=== PATIENT | male | born 1940 | race Caucasian/White ===

== ENCOUNTER 2016-10-30 16:20 | Observation (INO) | payer MEDICARE, OTHER ==
[2016-10-30] MEDS ORDERED: Ketorolac 30 MG/ML SDV IM ONE (16:38)
[2016-10-30] MEDS ORDERED: Acetaminophen/oxyCODONE 325-5 MG Tab PO ONE (16:39)
--- NOTE | 2016-10-30 16:49 | EDM.PDOC ---
ED HPI GENERAL MEDICAL PROBLEM - General Chief Complaint: Back Pain or Injury Stated Complaint: MEDICAL [facility] Time Seen by Provider: 10/30/16 16:30 Source of Information: Reports: Patient, Old Records History Limitations: Reports: No Limitations - History of Present Illness INITIAL COMMENTS - FREE TEXT/NARRATIVE: 76 yo male who drinks alcohol in excess regularly fell 3 times in one day a week ago in his home while drinking. First he fell off his couch landing on the right side of his face. Then he headed up stairs and fell backwards falling down 6 stairs. Then he crawled to the top of the stairs and fell in the bathroom injuring his back. There was no LOC. He lives alone. Has not taken anything for pain. Arrives via EMS from his home. Says he passes out often and sometimes his legs give out on him. Last drank yesterday. No hx of seizures or DT's from alcohol abstinence. Pain is to his low back primarily. Onset Date: 10/23/16 Duration: Day(s): Location: Reports: Face, Back Quality: Reports: Ache, Sharp (with movement) Severity: Severe Improves with: Reports: Rest Worsens with: Reports: Movement Context: Reports: Trauma (fall) Associated Symptoms: Reports: Syncope (passes out with standing intermittently over a prolonged period of time.) Treatments [employer]: Reports: Other (see below) (none) Lower Back Pain Score (Numeric/FACES): 9 - Related Data Allergies Allergy/AdvReac Type Severity Reaction Status Date / Time No Known Allergies Allergy Verified 10/30/16 16:41 Home Meds: Home Meds Atenolol [Tenormin] 100 mg PO DAILY 03/10/13 [History] Simvastatin [Zocor] 20 mg PO BEDTIME 03/10/13 [History] amLODIPine [Norvasc] 2.5 mg PO BID 03/11/13 [History] glipiZIDE [Glucotrol XL] 2.5 mg PO BID 11/05/13 [History] Social & Family History - Tobacco Use Second Hand Smoke Exposure: No - Alcohol Use Days Per Week of Alcohol Use: 7 Number of Drinks Per Day: 5 Total Drinks Per Week: 35 - Recreational Drug Use Recreational Drug Use: No ED ROS GENERAL - Review of Systems Review Of Systems: See Below Constitutional: Reports: No Symptoms HEENT: Reports: Other (R jaw pain since fall) Respiratory: Reports: No Symptoms Cardiovascular: Reports: No Symptoms Endocrine: Reports: No Symptoms GI/Abdominal: Reports: No Symptoms : Reports: No Symptoms Musculoskeletal: Reports: Back Pain Skin: Reports: No Symptoms Neurological: Reports: Difficulty Walking (since fall), Weakness (of legs intermittently when he stands/walks). Denies: Headache, Change in Speech Psychiatric: Reports: No Symptoms ED EXAM,LOWER BACK PAIN/INJURY - Physical Exam Exam: See Below Exam Limited By: No Limitations General Appearance: Alert, WD/WN, No Apparent Distress Eye Exam: Bilateral Eye: EOMI, PERRL Ears: Normal External Exam, Normal Canal, Hearing Grossly Normal Nose: Normal Inspection, Normal Mucosa, No Blood Throat/Mouth: Normal Inspection, Normal Lips, Normal Oropharynx, Normal Voice, No Airway Compromise Head: Atraumatic, Normocephalic Neck: Normal Inspection, Supple, Non-Tender, Full Range of Motion Respiratory/Chest: No Respiratory Distress, Lungs Clear, Normal Breath Sounds, No Accessory Muscle Use Cardiovascular: Regular Rate, Rhythm, No Edema GI/Abdominal: Normal Bowel Sounds, Soft, Non-Tender, No Distention Back Exam: Normal Inspection, Vertebral Tenderness (lumbar ). No: CVA Tenderness (R), CVA Tenderness (L) Extremities: Normal Inspection, Normal Range of Motion, Non-Tender, No Pedal Edema Neurological: Alert, Normal Mood/Affect, CN II-XII Intact, No Motor/Sensory Deficits, Oriented x 3 Psychiatric: Normal Affect, Normal Mood Skin Exam: Warm, Dry, Intact, Normal Color, No Rash Lymphatic: No Adenopathy Course - Vital Signs Text/Narrative:: Toradol 15 mg IM, Percocet 2 po-minimal benefit NS IV @ 100 ml/h, Dilaudid 0.5 mg IV Lumbar spine X-ray-? mild compression Fx's of L4, L5, and L1, degen. changes at multiple levels. Dr. Perrin called @ 1801h Last Recorded V/S: Last Vital Signs Temp 35.8 C 10/30/16 16:28 Pulse 95 10/30/16 16:28 Resp 16 10/30/16 16:28 BP 151/90 H 10/30/16 16:28 Pulse Ox 96 10/30/16 16:28 - Orders/Labs/Meds Orders: Active Orders 24 hr Category Date Time Status Lumbar Spine 2 or 3V [CR] Stat Exams 10/30/16 16:37 Taken Sodium Chloride 0.9% [Normal Saline] 1,000 ml Med 10/30/16 18:15 Active IV ASDIRECTED Medication Orders Sodium Chloride (Normal Saline) 1,000 mls @ 100 mls/hr IV ASDIRECTED RAVEN Labs: Laboratory Tests 10/30/16 10/30/16 10/30/16 Range/Units 17:14 17:14 17:54 WBC 9.0 (4.5-11.0) K/uL RBC 4.50 (4.30-5.90) M/uL Hgb 15.2 H D (12.0-15.0) g/dL Hct 43.6 (40.0-54.0) % MCV 97 (80-98) fL MCH 34 H (27-31) pg MCHC 35 (32-36) % Plt Count 73 L (150-400) K/uL Sodium 132 L (140-148) mmol/L Potassium 4.4 (3.6-5.2) mmol/L Chloride 93 L (100-108) mmol/L Carbon Dioxide 29 (21-32) mmol/L Anion Gap 14.4 H (5.0-14.0) mmol/L BUN 17 (7-18) mg/dL Creatinine 1.8 H (0.8-1.3) mg/dL Est Cr Clr Drug Dosing 39.32 mL/min Estimated GFR (MDRD) 37 L (>60) Glucose 176 H (74-106) mg/dL Calcium 9.0 (8.5-10.1) mg/dL Total Bilirubin 2.2 H D (0.2-1.0) mg/dL AST 31 (15-37) U/L ALT 22 (12-78) U/L Alkaline Phosphatase 74 (46-116) U/L Total Protein 8.0 (6.4-8.2) g/dL Albumin 2.9 L (3.4-5.0) g/dL Globulin 5.1 H (2.3-3.5) g/dL Albumin/Globulin Ratio 0.6 L (1.2-2.2) Urine Color Other Urine Appearance Turbid Urine pH 5.0 (4.5-8.0) Ur Specific [place] 1.010 (1.008-1.030) Urine Protein Negative (NEGATIVE) mg/dL Urine Glucose (UA) Normal (NEGATIVE) mg/dL Urine Ketones 15 H (NEGATIVE) mg/dL Urine Occult Blood Moderate (NEGATIVE) Urine Nitrite Positive H (NEGAITVE) Urine Bilirubin Small (NEGATIVE) Urine Urobilinogen 4 (NORMAL) mg/dL Ur Leukocyte Esterase Large (NEGATIVE) Urine RBC 0-5 (0-5) Urine WBC Packed H (0-5) Ur Epithelial Cells Few Amorphous Sediment Few Urine Bacteria Many Urine Mucus Not seen Meds: Medications Generic Name Dose Route Start Last Admin Trade Name Freq PRN Reason Stop Dose Admin Sodium Chloride 1,000 mls @ 100 mls/hr 10/30/16 18:15 Normal Saline IV ASDIRECTED RAVEN Discontinued Medications Generic Name Dose Route Start Last Admin Trade Name Freq PRN Reason Stop Dose Admin Hydromorphone HCl 0.5 mg 10/30/16 18:02 Dilaudid IVPUSH 10/30/16 18:03 ONETIME ONE Ketorolac Tromethamine 15 mg 10/30/16 16:38 10/30/16 17:22 Toradol IM 10/30/16 16:39 15 mg ONETIME ONE Administration Oxycodone/Acetaminophen 2 tab 10/30/16 16:39 10/30/16 17:20 Percocet 325-5 Mg PO 10/30/16 16:40 2 tab ONETIME ONE Administration Departure - Departure Time of Disposition: 18:08 Disposition: Refer to Observation Condition: Fair Clinical Impression: Acute exacerbation of chronic low back pain - Discharge Information Forms: ED Department Discharge - My Orders Last 24 Hours: My Active Orders 10/30/16 16:37 Lumbar Spine 2 or 3V [CR] Stat 10/30/16 18:15 Sodium Chloride 0.9% [Normal Saline] 1,000 ml IV ASDIRECTED - Assessment/Plan Last 24 Hours: My Active Orders 10/30/16 16:37 Lumbar Spine 2 or 3V [CR] Stat 10/30/16 18:15 Sodium Chloride 0.9% [Normal Saline] 1,000 ml IV ASDIRECTED
[2016-10-30] MEDS ORDERED: HYDROmorphone 0.5 MG/0.5 ML Syringe IVPUSH ONE (18:02)
[2016-10-30] MEDS ORDERED: Sodium Chloride 0.9% 1,000 ML IV SCH (18:15)
[2016-10-30] MEDS: cefTRIAXone 1 GM in Sodium Chloride 0.9% 50 ML IV SCH (20:25)
--- NOTE | 2016-10-30 20:31 | PCM.HP ---
H&P History of Present Illness - General Date of Service: 10/30/16 Admit Problem/Dx: Admission Diagnosis/Problem Admission Diagnosis/Problem Pain Source of Information: Patient, Provider, RN Notes Reviewed History Limitations: Reports: No Limitations - History of Present Illness Initial Comments - Free Text/Narative: This patient is a 76-year-old gentleman who is admitted to observation status through the emergency department because of severe low back pain resulting in inability to care for himself. He fell 8 days ago and since then has had severe pain in his lower back, he denies pain radiating to the legs or any neurologic compromise. Because of persistent pain he has been crawling around the house and has been unable to adequately care for himself. He does drink a large amount of alcohol on a daily basis. X-ray shows possible compression fractures at L1 L4 and L5, age of these is unknown. Evaluation is also shown evidence of urinary tract infection. Lower Back Pain Score (Numeric/FACES): 9 - Related Data Allergies/Adverse Reactions: Allergies Allergy/AdvReac Type Severity Reaction Status Date / Time No Known Allergies Allergy Verified 10/30/16 16:41 Home Medications: Home Meds Atenolol [Tenormin] 100 mg PO DAILY 03/10/13 [History] Simvastatin [Zocor] 20 mg PO BEDTIME 03/10/13 [History] amLODIPine [Norvasc] 2.5 mg PO BID 03/11/13 [History] glipiZIDE [Glucotrol XL] 2.5 mg PO BID 11/05/13 [History] Past Medical History Cardiovascular History: Reports: High Cholesterol, Hypertension Gastrointestinal History: Reports: Gastritis Musculoskeletal History: Reports: Fracture, Other (See Below) Other Musculoskeletal History: Fx r ankle with pins Neurological History: Reports: Other (See Below) Other Neuro History: Fainting episodes Psychiatric History: Reports: Addiction Endocrine/Metabolic History: Reports: Diabetes, Type II Hematologic History: Reports: Blood Transfusion(s) - Infectious Disease History Infectious Disease History: Reports: Chicken Pox, Measles, Mumps, Shingles - Past Surgical History HEENT Surgical History: Reports: Cataract Surgery Social & Family History - Tobacco Use Smoking Status *Q: Never Smoker Second Hand Smoke Exposure: No - Caffeine Use Caffeine Use: Reports: Soda - Alcohol Use Days Per Week of Alcohol Use: 7 Number of Drinks Per Day: 5 Total Drinks Per Week: 35 Date of Last Drink: 10/30/16 Time of Last Drink: 02:00 - Recreational Drug Use Recreational Drug Use: No H&P Review of Systems - Review of Systems: Review Of Systems: See Below General: Reports: Weakness. Denies: Fever, Chills HEENT: Reports: No Symptoms Pulmonary: Reports: No Symptoms Cardiovascular: Reports: No Symptoms Gastrointestinal: Reports: No Symptoms Genitourinary: Reports: No Symptoms Musculoskeletal: Reports: Back Pain Skin: Reports: No Symptoms Psychiatric: Reports: No Symptoms Neurological: Reports: No Symptoms Hematologic/Lymphatic: Reports: No Symptoms Immunologic: Reports: No Symptoms Exam - Exam Exam: See Below - Vital Signs Vital Signs: Last Vital Signs Temp 96.4 F 10/30/16 20:14 Pulse 95 10/30/16 20:14 Resp 16 10/30/16 20:14 BP 151/90 H 10/30/16 20:14 Pulse Ox 96 10/30/16 20:14 Weight: 190 lb - Exam Quality Assessment: DVT Prophylaxis General: Alert, Oriented, Cooperative, Moderate Distress HEENT: Conjunctiva Clear, Hearing Intact, Normal Nasal Septum, Posterior Pharynx Clear, Pupils Equal. No: Mucosa Moist & [place] Neck: Supple, Trachea Midline, +2 Carotid Pulse wo Bruit Lungs: Clear to Auscultation, Normal Respiratory Effort Cardiovascular: Regular Rate, Regular Rhythm, Normal S1, Normal S2. No: Systolic Murmur, Diastolic Murmur Abdomen: Normal Bowel Sounds, Soft Back Exam: Vertebral Tenderness Extremities: 3, Normal Inspection, 10 Skin: Warm, Dry, Intact Neurological: Cranial Nerves Intact, Strength Equal Bilateral, Normal Speech, Normal Tone, Sensation Intact. No: Focal Deficit Neuro Extensive - Mental Status: Alert, Oriented x3, Normal Mood/Affect, Normal Cognition - Patient Data Lab Results Last 24 hrs: Laboratory Results - last 24 hr 10/30/16 10/30/16 10/30/16 Range/Units 17:14 17:14 17:54 WBC 9.0 (4.5-11.0) K/uL RBC 4.50 (4.30-5.90) M/uL Hgb 15.2 H D (12.0-15.0) g/dL Hct 43.6 (40.0-54.0) % MCV 97 (80-98) fL MCH 34 H (27-31) pg MCHC 35 (32-36) % Plt Count 73 L (150-400) K/uL Sodium 132 L (140-148) mmol/L Potassium 4.4 (3.6-5.2) mmol/L Chloride 93 L (100-108) mmol/L Carbon Dioxide 29 (21-32) mmol/L Anion Gap 14.4 H (5.0-14.0) mmol/L BUN 17 (7-18) mg/dL Creatinine 1.8 H (0.8-1.3) mg/dL Est Cr Clr Drug Dosing 39.32 mL/min Estimated GFR (MDRD) 37 L (>60) Glucose 176 H (74-106) mg/dL Calcium 9.0 (8.5-10.1) mg/dL Total Bilirubin 2.2 H D (0.2-1.0) mg/dL AST 31 (15-37) U/L ALT 22 (12-78) U/L Alkaline Phosphatase 74 (46-116) U/L Total Protein 8.0 (6.4-8.2) g/dL Albumin 2.9 L (3.4-5.0) g/dL Globulin 5.1 H (2.3-3.5) g/dL Albumin/Globulin Ratio 0.6 L (1.2-2.2) Urine Color Other Urine Appearance Turbid Urine pH 5.0 (4.5-8.0) Ur Specific [place] 1.010 (1.008-1.030) Urine Protein Negative (NEGATIVE) mg/dL Urine Glucose (UA) Normal (NEGATIVE) mg/dL Urine Ketones 15 H (NEGATIVE) mg/dL Urine Occult Blood Moderate (NEGATIVE) Urine Nitrite Positive H (NEGAITVE) Urine Bilirubin Small (NEGATIVE) Urine Urobilinogen 4 (NORMAL) mg/dL Ur Leukocyte Esterase Large (NEGATIVE) Urine RBC 0-5 (0-5) Urine WBC Packed H (0-5) Ur Epithelial Cells Few Amorphous Sediment Few Urine Bacteria Many Urine Mucus Not seen Result Diagrams: 10/30/16 17:14 10/30/16 17:14 *Q Meaningful Use (ADM) - VTE *Q VTE Criteria *Q: - VTE Risk Assess *Q Each Risk Factor Represents 1 Point: None Total Score 1 Point Risk Factors: 0 Each Risk Factor Represents 2 Points: None Total Score 2 Point Risk Factors: 0 Each Risk Factor Represents 3 Points: Age 75 Years or Greater Total Score 3 Point Risk Factors: 3 Each Risk Factor Represents 5 Points: None Total Score 5 Point Risk Factors: 0 Venous Thromboembolism Risk Factor Score *Q: 3 - Stroke *Q Stroke Criteria *Q: - AMI *Q AMI Criteria *Q: Problem List Initiated/Reviewed/Updated: Yes Orders Last 24hrs: Active Orders 24 hr Category Date Time Status Patient Status Manage Transfer [TRANSFER] Routine ADT 10/30/16 20:12 Ordered Lumbar Spine 2 or 3V [CR] Stat Exams 10/30/16 16:37 Taken CULTURE URINE [RM] Stat Lab 10/30/16 20:15 Received Sodium Chloride 0.9% [Normal Saline] 1,000 ml Med 10/30/16 18:15 Active IV ASDIRECTED cefTRIAXone [Rocephin] 1 gm Med 10/30/16 20:00 Active Sodium Chloride 0.9% [Normal Saline] 50 ml IV Q24H Resuscitation Status Routine Resus Stat 10/30/16 20:13 Ordered Medication Orders Sodium Chloride (Normal Saline) 1,000 mls @ 100 mls/hr IV ASDIRECTED RAVEN Last Admin: 10/30/16 18:28 Dose: 100 mls/hr Ceftriaxone Sodium 1 gm/ (Sodium Chloride) 50 mls @ 100 mls/hr IV Q24H [facility] Assessment/Plan Comment:: ASSESSMENT AND PLAN LOW BACK PAIN-present since he fell 8 days ago, suspect spinal compression fracture. No symptoms or evidence of neurologic compromise -Pain medication as needed -Physical therapy consult in a.m. -CT scan of the lumbar spine in a.m. -[facility] patient reports he has full benefits URINARY TRACT INFECTION-no evidence of sepsis -Urine culture pending -IV fluids for hydration -Rocephin 1 g IV every 24 hours pending culture results HISTORY OF DAILY ALCOHOL CONSUMPTION-by history drinks a large amount on a daily basis -Alcohol withdrawal protocol -Gabapentin 400 mg by mouth every 8 hours 4 days, then 200 mg by mouth every 8 hours 4 days -Oral thiamine and folic acid, banana bag TYPE 2 DIABETES MELLITUS -Hold glipizide -4 times a day glucometers -Low-dose sliding scale [employer] CHRONIC KIDNEY DISEASE STAGE III -Closely monitor urine output and renal function during hospital stay MAINTENANCE ISSUES -DVT prophylaxis; Lovenox 40 mg subcutaneous daily -GI prophylaxis; not indicated -[place] catheter; not indicated -Nutrition; consistent carb diet -Nicotinic dependence; not required CODE STATUS-FULL CODE ADMISSION STATUS-this patient will be admitted to observation status, expect no more than a one night hospital stay for evaluation and management of problems as outlined above. DISPOSITION-anticipate discharge to home after the hospital stay. PRIMARY CARE PROVIDER-[facility] [place]
[2016-10-30] MEDS ORDERED: Magnesium Hydroxide 400 MG/5 ML Susp 30 ML Cup PO PRN (20:52)
[2016-10-30] MEDS ORDERED: Polyethylene Glycol 3350 Powder 17 GM Packet PO PRN (20:52)
[2016-10-30] MEDS ORDERED: MVI, Adult with Vitamin K 10 ML, Thiamine 100 MG, Folic Acid 1 MG, Magnesium Sulfate 2 ... IV ONE ×5 (20:52)
[2016-10-30] MEDS ORDERED: LORazepam 2 MG/ML MDV IV SCH (20:52)
[2016-10-30] MEDS ORDERED: Docusate Sodium 100 MG Cap PO PRN (20:52)
[2016-10-30] MEDS ORDERED: HYDROmorphone 0.5 MG/0.5 ML Syringe IVPUSH PRN (20:52)
[2016-10-30] MEDS ORDERED: Glucose Gel 15 GM in 37.5 GM Tube PO PRN (20:52)
[2016-10-30] MEDS ORDERED: Sodium Chloride 0.9% 10 ML Syringe FLUSH PRN (20:52)
[2016-10-30] MEDS ORDERED: 50% Dextrose in Water 50 ML Syringe IV PRN (20:52)
[2016-10-30] MEDS ORDERED: Ondansetron 4 MG/2 ML SDV IV PRN (20:52)
[2016-10-30] MEDS ORDERED: LORazepam 1 MG Tab PO SCH (20:52)
[2016-10-30] MEDS ORDERED: Acetaminophen 325 MG Tab PO PRN (20:52)
[2016-10-30] MEDS ORDERED: Simvastatin 20 MG Tab PO SCH (21:00)
[2016-10-30] MEDS: Sodium Chloride 0.9% 1,000 ML IV SCH (21:00)
[2016-10-30] MEDS ORDERED: amLODIPine 2.5 MG Tab PO SCH (21:00)
[2016-10-30] MEDS: Folic Acid 1 MG Tab PO SCH (22:03)
[2016-10-30] MEDS: Gabapentin 400 MG Cap PO SCH (22:04)
[2016-10-30] MEDS: Thiamine 100 MG Tab PO SCH (22:04)
[2016-10-30] MEDS: amLODIPine 5 MG Tab**OWN MED PO SCH (22:40)
[2016-10-30] MEDS ORDERED: Thiamine 200 MG/2 ML MDV ONE (23:02)
[2016-10-30] MEDS: Magnesium Sulfate (4.06 MEQ/ML) 1 GM/2 ML SDV ONE ×2 (23:33→23:34)
[2016-10-30] MEDS: Folic Acid 50 MG/10 ML MDV ONE (23:33)
[2016-10-30] MEDS: MVI, Adult with Vitamin K 10 ML SDV IV ONE ×2 (23:33→23:34)
[2016-10-31] MEDS ORDERED: Lidocaine 2% Jelly 10 ML Urojet MUCMEM ONE (00:24)
[2016-10-31] MEDS ORDERED: Enoxaparin 40 MG/0.4 ML Syringe SUBCUT SCH (09:00)
[2016-10-31] MEDS: Gabapentin 400 MG Cap PO SCH ×3 (09:23→20:59)
[2016-10-31] MEDS: Sodium Chloride 0.9% 1,000 ML IV SCH ×2 (09:43→19:36)
[2016-10-31] MEDS: Folic Acid 1 MG Tab PO SCH (09:54)
[2016-10-31] MEDS: amLODIPine 5 MG Tab**OWN MED PO SCH ×2 (09:55→20:59)
[2016-10-31] MEDS: Atenolol 50 MG Tab PO SCH (09:56)
[2016-10-31] MEDS: Thiamine 100 MG Tab PO SCH (09:57)
[2016-10-31] MEDS ORDERED: Insulin Aspart 100 Units/ML 3 ML Pen SUBCUT SCH (10:00)
[2016-10-31] MEDS ORDERED: GLIPIZIDE 2.5 MG PO SCH (12:30)
--- NOTE | 2016-10-31 12:43 | PCM.PN ---
- General Info Date of Service: 10/31/16 Functional Status: Reports: pain controlled, tolerating diet, ambulating, urinating - Review of Systems General: Reports: Weakness. Denies: Fever, Chills Pulmonary: Reports: no symptoms Cardiovascular: Reports: No Symptoms Gastrointestinal: Reports: No symptoms Systems Review Comment:: This patient has been fairly stable since admission, pain control has improved and he is able to walk short distances. Most the pain he experiences this with transition from lying or sitting to standing or the reverse. CT scan of the lumbar spine was obtained today and shows evidence of old compression fractures and other degenerative disease but no acute compression fractures. CT scan of the head without contrast was obtained and shows no acute abnormalities. Vital signs have been stable and he has remained afebrile. Currently receiving IV antibiotic therapy for urinary tract infection, urine culture pending. - Patient Data Vitals - most recent: Last Vital Signs Temp 97.6 F 10/31/16 11:26 Pulse 96 10/31/16 11:26 Resp 18 10/31/16 11:26 BP 146/78 H 10/31/16 11:26 Pulse Ox 100 10/31/16 11:26 Weight - most recent: 178 lb I&O - last 24 hours: Intake & Output 10/30/16 10/31/16 10/31/16 22:59 06:59 14:59 Intake Total 50 902 Output Total 50 Balance 50 902 -50 Lab Results last 24 hrs: Laboratory Results - last 24 hr 10/31/16 10/31/16 Range/Units 05:56 05:56 WBC 6.3 (4.5-11.0) K/uL RBC 3.58 L (4.30-5.90) M/uL Hgb 12.2 D (12.0-15.0) g/dL Hct 35.1 L (40.0-54.0) % MCV 98 (80-98) fL MCH 34 H (27-31) pg MCHC 35 (32-36) % Plt Count 88 L (150-400) K/uL Neut % (Auto) 61 (36-66) % Lymph % (Auto) 24 (24-44) % [place] % (Auto) 12 H (2-6) % Eos % (Auto) 2 (2-4) % Baso % (Auto) 1 (0-1) % Sodium 134 L (140-148) mmol/L Potassium 4.3 (3.6-5.2) mmol/L Chloride 99 L (100-108) mmol/L Carbon Dioxide 31 (21-32) mmol/L Anion Gap 8.3 (5.0-14.0) mmol/L BUN 23 H (7-18) mg/dL Creatinine 1.7 H (0.8-1.3) mg/dL Est Cr Clr Drug Dosing 40.90 mL/min Estimated GFR (MDRD) 39 L (>60) Glucose 175 H (74-106) mg/dL Calcium 8.1 L (8.5-10.1) mg/dL Med Orders - Current: Current Medications Acetaminophen (Tylenol) 650 mg PO Q4H PRN PRN Reason: Pain (Mild 1-3)/fever Hydrocodone Bitart/Acetaminophen ([place] 325-5 Mg) 2 tab PO Q4H PRN PRN Reason: Pain (moderate 4-6) Amlodipine Besylate (Norvasc) 2.5 mg PO BID [facility] Last Admin: 10/31/16 09:55 Dose: 2.5 mg Atenolol (Tenormin) 100 mg PO DAILY [facility] Last Admin: 10/31/16 09:56 Dose: 100 mg Dextrose (Glutose 15) 15 gm PO ONETIME PRN PRN Reason: Hypoglycemia Dextrose/Water (Dextrose 50% In Water) 50 ml IV ONETIME PRN PRN Reason: Hypoglycemia Docusate Sodium (Colace) 100 mg PO BID PRN PRN Reason: Constipation Last Admin: 10/30/16 22:05 Dose: 100 mg Folic Acid (Folic Acid) 1 mg PO DAILY [facility] Last Admin: 10/31/16 09:54 Dose: 1 mg Gabapentin (Neurontin) 400 mg PO TID [facility] Last Admin: 10/31/16 09:23 Dose: 400 mg Hydromorphone HCl (Dilaudid) 0.5 mg IVPUSH Q2H PRN PRN Reason: Pain Ceftriaxone Sodium 1 gm/ (Sodium Chloride) 50 mls @ 100 mls/hr IV Q24H [facility] Last Admin: 10/30/16 20:25 Dose: 100 mls/hr Lorazepam (Ativan) 0 mg IV ASDIRECTED [facility] PRN Reason: Protocol Lorazepam (Ativan) 0 mg PO ASDIRECTED [facility] PRN Reason: Protocol Magnesium Hydroxide (Milk Of Magnesia) 30 ml PO Q12H PRN PRN Reason: Constipation Non-Formulary Medication (Glipizide [Glucotrol Xl]) 2.5 mg PO BID [facility] Ondansetron HCl (Zofran) 4 mg IV Q4H PRN PRN Reason: Nausea/Vomiting Last Admin: 10/30/16 22:27 Dose: 4 mg Simvastatin (Ptom) 0 each PO BEDTIME [facility] Polyethylene Glycol (Miralax) 17 gm PO DAILY PRN PRN Reason: Constipation Last Admin: 10/30/16 22:05 Dose: 17 gm Sodium Chloride (Saline Flush) 10 ml FLUSH ASDIRECTED PRN PRN Reason: Keep Vein Open Thiamine HCl (Vitamin B-1) 100 mg PO DAILY [facility] Last Admin: 10/31/16 09:57 Dose: 100 mg Discontinued Medications Enoxaparin Sodium (Lovenox) 40 mg SUBCUT DAILY [facility] Folic Acid (Folic Acid) Confirm Administered Dose 50 mg .ROUTE .STK-MED ONE Stop: 10/30/16 23:03 Last Admin: 10/30/16 23:33 Dose: 50 mg Hydromorphone HCl (Dilaudid) 0.5 mg IVPUSH ONETIME ONE Stop: 10/30/16 18:03 Last Admin: 10/30/16 18:29 Dose: 0.5 mg Sodium Chloride (Normal Saline) 1,000 mls @ 100 mls/hr IV ASDIRECTED [facility] Last Admin: 10/30/16 18:28 Dose: 100 mls/hr Multivitamins/Minerals 10 ml/Thiamine HCl 100 mg/ Folic Acid 1 mg/ Magnesium Sulfate 2 gm/ Sodium Chloride 1,015.2 mls @ 100 mls/hr IV ONETIME ONE Stop: 10/31/16 07:01 Last Admin: 10/30/16 23:32 Dose: 100 mls/hr Sodium Chloride (Normal Saline) 1,000 mls @ 125 mls/hr IV ASDIRECTED [facility] Last Admin: 10/31/16 09:43 Dose: 125 mls/hr Insulin Aspart (Novolog) 0 unit SUBCUT ASDIRECTED [facility] PRN Reason: Protocol Ketorolac Tromethamine (Toradol) 15 mg IM ONETIME ONE Stop: 10/30/16 16:39 Last Admin: 10/30/16 17:22 Dose: 15 mg Magnesium Sulfate (Magnesium Sulfate 50%) Confirm Administered Dose 1 gm .ROUTE .STK-MED ONE Stop: 10/30/16 23:03 Last Admin: 10/30/16 23:34 Dose: 1 gm Multivitamins/Minerals (Infuvite Adult) Confirm Administered Dose 10 ml IV .STK- MED ONE Stop: 10/30/16 23:04 Last Admin: 10/30/16 23:34 Dose: 10 ml Oxycodone/Acetaminophen (Percocet 325-5 Mg) 2 tab PO ONETIME ONE Stop: 10/30/16 16:40 Last Admin: 10/30/16 17:20 Dose: 2 tab Patient's Own Medication 1 Each Simvastatin 40 Mg 0.5 each PO BEDTIME [facility] Thiamine HCl (Vitamin B-1) Confirm Administered Dose 200 mg .ROUTE .STK-MED ONE Stop: 10/30/16 23:03 Last Admin: 10/30/16 23:33 Dose: 200 mg - Exam Quality Assessment: DVT prophylaxis General: alert, oriented, mild distress Lungs: Clear to auscultation, Normal respiratory effort Cardiovascular: Regular Rate, Regular Rhythm, No Murmurs Abdomen: bowel sounds present, soft, no tenderness, no distension Extremities: no edema Skin: warm, dry, intact - Problem List Review Problem List Initiated/Reviewed/Updated: Yes - My Orders Last 24 Hours: My Active Orders 10/30/16 20:13 Resuscitation Status Routine 10/30/16 20:52 Patient Status [ADT] Routine CIWAA Assessment [RC] Q4H Diabetes Education [RC] Click to Edit Intake and Output [RC] QSHIFT Notify Provider Vital Signs [RC] ASDIRECTED Notify Provider [RC] PRN Oxygen Therapy [RC] PRN Peripheral IV Care [RC] Q12H Up With Assistance [RC] ASDIRECTED VTE/DVT Education [RC] Per Unit Routine Vital Signs [RC] Q4H PT Evaluation and Treatment [CONS] Routine Acetaminophen [Tylenol] 650 mg PO Q4H PRN Acetaminophen/HYDROcodone [[place] 325-5 MG] 2 tab PO Q4H PRN Dextrose 50% in Water 50 ml IV ONETIME PRN Dextrose [Glutose 15] 15 gm PO ONETIME PRN Docusate Sodium [Colace] 100 mg PO BID PRN Folic Acid 1 mg PO DAILY HYDROmorphone [Dilaudid] 0.5 mg IVPUSH Q2H PRN LORazepam [Ativan] See Protocol IV ASDIRECTED LORazepam [Ativan] See Protocol PO ASDIRECTED Magnesium Hydroxide [Milk of Magnesia] 30 ml PO Q12H PRN Ondansetron [Zofran] 4 mg IV Q4H PRN Polyethylene Glycol 3350 [MiraLAX] 17 gm PO DAILY PRN Sodium Chloride 0.9% [Saline Flush] 10 ml FLUSH ASDIRECTED PRN Thiamine [Vitamin B-1] 100 mg PO DAILY Peripheral IV Insertion Adult [OM.PC] Routine 10/30/16 21:00 Gabapentin [Neurontin] 400 mg PO TID 10/30/16 22:30 amLODIPine [Norvasc] 2.5 mg PO BID 10/30/16 Dinner Consistent Carbohydrate Diet [DIET] 10/31/16 08:00 Lumbar Spine wo Cont [CT] Stat 10/31/16 08:24 Sequential Compression Device [OM.PC] Routine 10/31/16 09:45 Head wo Cont [CT] Stat 10/31/16 12:30 glipiZIDE [Glucotrol XL] 2.5 mg PO BID 10/31/16 12:38 Convert IV to Saline Lock [OM.PC] Routine 10/31/16 21:00 Patient's Own Medication [Ptom] 0 each PO BEDTIME 11/01/16 05:00 BASIC METABOLIC PANEL,BMP [CHEM] Timed CBC WITH AUTO DIFF [HEME] Timed - Plan Plan:: ASSESSMENT AND PLAN LOW BACK PAIN-present since he fell 8 days ago, CT scan of the lumbar spine shows no evidence of acute compression fracture. Old compression fractures were noted with associated degenerative changes. -Pain medication as needed -Physical therapy consult in a.m. URINARY TRACT INFECTION-no evidence of sepsis -Urine culture pending -Saline lock IV -Rocephin 1 g IV every 24 hours pending culture results HISTORY OF DAILY ALCOHOL CONSUMPTION-by history drinks a large amount on a daily basis -Alcohol withdrawal protocol -Gabapentin 400 mg by mouth every 8 hours 4 days, then 200 mg by mouth every 8 hours 4 days -Oral thiamine and folic acid, banana bag TYPE 2 DIABETES MELLITUS -Resume glipizide CHRONIC KIDNEY DISEASE STAGE III -Closely monitor urine output and renal function during hospital stay MAINTENANCE ISSUES -DVT prophylaxis; Lovenox 40 mg subcutaneous daily -GI prophylaxis; not indicated -H[place]inson catheter; not indicated -Nutrition; consistent carb diet -Nicotinic dependence; not required CODE STATUS-FULL CODE ADMISSION STATUS-this patient will be admitted to observation status, expect no more than a one night hospital stay for evaluation and management of problems as outlined above. DISPOSITION-anticipate discharge to home after the hospital stay. PRIMARY CARE PROVIDER-[facility] [place]
[2016-10-31] MEDS: glipiZIDE 5 MG Tab PO SCH ×2 (14:15→20:58)
[2016-10-31] MEDS ORDERED: glipiZIDE 5 MG Tab PO SCH (16:30)
[2016-10-31] MEDS: Acetaminophen/HYDROcodone 325-5 MG Tab PO PRN (16:59)
[2016-10-31] MEDS: cefTRIAXone 1 GM in Sodium Chloride 0.9% 50 ML IV SCH (19:26)
[2016-10-31] MEDS ORDERED: SIMVASTATIN PO SCH (21:00)
[2016-10-31] MEDS ORDERED: SIMVASTATIN 40 MG PO SCH (21:00)
[2016-11-01] MEDS: Sodium Chloride 0.9% 1,000 ML IV SCH (00:11)
[2016-11-01] MEDS ORDERED: Sodium Chloride 0.9% 1,000 ML IV SCH (03:15)
[2016-11-01] MEDS ORDERED: glipiZIDE 5 MG Tab PO SCH (07:30)
[2016-11-01] MEDS: Acetaminophen/HYDROcodone 325-5 MG Tab PO PRN (07:38)
[2016-11-01] MEDS: Atenolol 50 MG Tab PO SCH (08:50)
[2016-11-01 09:26] VITALS: BP 129/65
[2016-11-01] MEDS: Gabapentin 400 MG Cap PO SCH (09:26)
[2016-11-01] MEDS: Thiamine 100 MG Tab PO SCH (09:27)
[2016-11-01] MEDS: Folic Acid 1 MG Tab PO SCH (09:27)
[2016-11-01] MEDS: amLODIPine 5 MG Tab**OWN MED PO SCH (09:27)
--- NOTE | 2016-11-01 11:37 | PCM.DCSUM1 ---
Discharge Summary - Hospital Course Brief History: Mr. Clarke is a 76-year-old gentleman who is admitted through the emergency department to observation status for further evaluation and management of severe lower back pain. - Discharge Data Discharge Date: 11/01/16 Discharge Disposition: Home, W Home Health Agency 06 Condition: Fair - Discharge Diagnosis/Problem(s) (1) CKD (chronic kidney disease) stage 3, GFR 30-59 ml/min SNOMED Code(s): 494735210 ICD Code: N18.3 - CHRONIC KIDNEY DISEASE, STAGE 3 (MODERATE) Status: Acute Current Visit: Yes (2) Alcohol abuse SNOMED Code(s): 61399647 ICD Code: F10.10 - ALCOHOL ABUSE, UNCOMPLICATED Status: Acute Current Visit: No (3) Diabetes mellitus type 2 SNOMED Code(s): 62062413 ICD Code: E11.9 - TYPE 2 DIABETES MELLITUS WITHOUT COMPLICATIONS Status: Chronic Current Visit: No (4) Acute exacerbation of chronic low back pain SNOMED Code(s): 827302636 ICD Code: M54.5 - LOW BACK PAIN; G89.29 - OTHER CHRONIC PAIN Status: Acute Current Visit: Yes (5) UTI (urinary tract infection) SNOMED Code(s): 64002293 ICD Code: N39.0 - URINARY TRACT INFECTION, SITE NOT SPECIFIED Status: Acute Current Visit: Yes - Patient Summary/Data Consults: Consultations 10/30/16 20:52 PT Evaluation and Treatment [CONS] Routine Please Evaluate and Treat. PT Reason for Consult: Back pain following a fall This query below is only for informational purposes and is not editable. Hospital Course: Mr. Clarke is a 76-year-old gentleman who is admitted through the emergency department to observation status for further evaluation and management of severe low back pain. He has a history of chronic alcohol use and abuse and drinks alcohol on a daily basis. Approximately 8 days prior to admission he fallen down about a half flight of stairs and since then has experienced significant lower back pain. X-ray obtained in the emergency department suggested compression fractures, age indeterminate. On admission he was given IV fluids for hydration and pain medication as needed. After admission urinalysis was obtained that did show evidence of urinary tract infection. Urine culture was obtained but is pending at the time of discharge. He was started on oral Rocephin 1 g every 24 hours. Morning after admission CT scan of the lumbar spine was obtained which showed evidence of old compression fractures at L4 and L5 as well as degenerative changes in the back, but no new evidence of acute compression fracture. He was seen and evaluated by physical therapy. After hydration and with pain medication he was feeling better and will be discharged home with assistance of home care. Activity will be as tolerated and he will resume his usual diet. He was counseled concerning the importance of decreasing or stopping his alcohol use. Activity will be as tolerated and he will resume his usual diet. Septra DS 1 by mouth twice a day for 5 days will be prescribed at time of discharge for ongoing management of his urinary tract infection. Follow-up appointment will be scheduled with his primary care provider within one week. - Patient Instructions Diet: Diabetic Diet Activity: As Tolerated Other/Special Instructions: Please schedule follow-up appointment with primary care provider within one week. - Discharge Plan Prescriptions/Med Rec: Acetaminophen/HYDROcodone [[place] 325-5 MG] 1 tab PO Q4H PRN #20 tablet PRN Reason: Pain Sulfamethoxazole/Trimethoprim [Septra DS] 1 each PO BID #10 tab Home Medications: Home Meds Atenolol [Tenormin] 100 mg PO DAILY 03/10/13 [History] Simvastatin [Zocor] 20 mg PO BEDTIME 03/10/13 [History] amLODIPine [Norvasc] 2.5 mg PO BID 03/11/13 [History] glipiZIDE [Glucotrol XL] 2.5 mg PO BID 11/05/13 [History] Acetaminophen/HYDROcodone [[place] 325-5 MG] 1 tab PO Q4H PRN #20 tablet 11/01/16 [Rx] Sulfamethoxazole/Trimethoprim [Septra DS] 1 each PO BID #10 tab 11/01/16 [Rx] Forms: ED Department Discharge Referrals: PCP,None [Primary Care Provider] - - Patient Data Vitals - Most Recent: Last Vital Signs Temp 97.8 F 11/01/16 07:30 Pulse 66 11/01/16 08:50 Resp 16 11/01/16 07:30 BP 129/65 11/01/16 09:27 Pulse Ox 96 11/01/16 07:30 Weight - Most Recent: 178 lb I&O - Last 24 hours: Intake & Output 10/31/16 11/01/16 11/01/16 22:59 06:59 14:59 Intake Total 1438 8230 Output Total 825 250 Balance 1691 1082 -250 Lab Results - Last 24 hrs: Laboratory Results - last 24 hr 11/01/16 11/01/16 Range/Units 05:15 05:15 WBC 7.0 (4.5-11.0) K/uL RBC 3.52 L (4.30-5.90) M/uL Hgb 12.0 (12.0-15.0) g/dL Hct 35.2 L (40.0-54.0) % MCV 100 H (80-98) fL MCH 34 H (27-31) pg MCHC 34 (32-36) % Plt Count 92 L (150-400) K/uL Neut % (Auto) 58 (36-66) % Lymph % (Auto) 28 (24-44) % [place] % (Auto) 11 H (2-6) % Eos % (Auto) 2 (2-4) % Baso % (Auto) 1 (0-1) % Sodium 137 L (140-148) mmol/L Potassium 4.2 (3.6-5.2) mmol/L Chloride 103 (100-108) mmol/L Carbon Dioxide 27 (21-32) mmol/L Anion Gap 11.2 (5.0-14.0) mmol/L BUN 21 H (7-18) mg/dL Creatinine 1.7 H (0.8-1.3) mg/dL Est Cr Clr Drug Dosing 40.90 mL/min Estimated GFR (MDRD) 39 L (>60) Glucose 93 (74-106) mg/dL Calcium 8.0 L (8.5-10.1) mg/dL JOEY Results - Last 24 hrs: Microbiology 10/30/16 20:15 Urine Culture - Preliminary Urine, Clean Catch Med Orders - Current: Current Medications Acetaminophen (Tylenol) 650 mg PO Q4H PRN PRN Reason: Pain (Mild 1-3)/fever Hydrocodone Bitart/Acetaminophen ([place] 325-5 Mg) 2 tab PO Q4H PRN PRN Reason: Pain (moderate 4-6) Last Admin: 11/01/16 07:38 Dose: 2 tab Amlodipine Besylate (Norvasc) 2.5 mg PO BID [facility] Last Admin: 11/01/16 09:27 Dose: 2.5 mg Atenolol (Tenormin) 100 mg PO DAILY [facility] Last Admin: 11/01/16 08:50 Dose: 100 mg Dextrose (Glutose 15) 15 gm PO ONETIME PRN PRN Reason: Hypoglycemia Dextrose/Water (Dextrose 50% In Water) 50 ml IV ONETIME PRN PRN Reason: Hypoglycemia Docusate Sodium (Colace) 100 mg PO BID PRN PRN Reason: Constipation Last Admin: 10/30/16 22:05 Dose: 100 mg Folic Acid (Folic Acid) 1 mg PO DAILY [facility] Last Admin: 11/01/16 09:27 Dose: 1 mg Gabapentin (Neurontin) 400 mg PO TID [facility] Last Admin: 11/01/16 09:26 Dose: 400 mg Glipizide (Glucotrol) 2.5 mg PO BIDAC [facility] Last Admin: 11/01/16 07:42 Dose: 2.5 mg Hydromorphone HCl (Dilaudid) 0.5 mg IVPUSH Q2H PRN PRN Reason: Pain Ceftriaxone Sodium 1 gm/ (Sodium Chloride) 50 mls @ 100 mls/hr IV Q24H [facility] Last Admin: 10/31/16 19:26 Dose: 100 mls/hr Sodium Chloride (Normal Saline) 1,000 mls @ 125 mls/hr IV ASDIRECTED [facility] Last Admin: 11/01/16 08:34 Dose: 125 mls/hr Lorazepam (Ativan) 0 mg IV ASDIRECTED [facility] PRN Reason: Protocol Lorazepam (Ativan) 0 mg PO ASDIRECTED [facility] PRN Reason: Protocol Magnesium Hydroxide (Milk Of Magnesia) 30 ml PO Q12H PRN PRN Reason: Constipation Ondansetron HCl (Zofran) 4 mg IV Q4H PRN PRN Reason: Nausea/Vomiting Last Admin: 10/30/16 22:27 Dose: 4 mg Simvastatin (Ptom) 0 each PO BEDTIME [facility] Last Admin: 10/31/16 20:59 Dose: 1 each Polyethylene Glycol (Miralax) 17 gm PO DAILY PRN PRN Reason: Constipation Last Admin: 10/30/16 22:05 Dose: 17 gm Sodium Chloride (Saline Flush) 10 ml FLUSH ASDIRECTED PRN PRN Reason: Keep Vein Open Thiamine HCl (Vitamin B-1) 100 mg PO DAILY [facility] Last Admin: 11/01/16 09:27 Dose: 100 mg Discontinued Medications Enoxaparin Sodium (Lovenox) 40 mg SUBCUT DAILY [facility] Folic Acid (Folic Acid) Confirm Administered Dose 50 mg .ROUTE .STK-MED ONE Stop: 10/30/16 23:03 Last Admin: 10/30/16 23:33 Dose: 50 mg Glipizide (Glucotrol) 2.5 mg PO BID [facility] Stop: 10/31/16 22:00 Last Admin: 10/31/16 20:58 Dose: 2.5 mg Hydromorphone HCl (Dilaudid) 0.5 mg IVPUSH ONETIME ONE Stop: 10/30/16 18:03 Last Admin: 10/30/16 18:29 Dose: 0.5 mg Sodium Chloride (Normal Saline) 1,000 mls @ 100 mls/hr IV ASDIRECTED [facility] Last Admin: 10/30/16 18:28 Dose: 100 mls/hr Multivitamins/Minerals 10 ml/Thiamine HCl 100 mg/ Folic Acid 1 mg/ Magnesium Sulfate 2 gm/ Sodium Chloride 1,015.2 mls @ 100 mls/hr IV ONETIME ONE Stop: 10/31/16 07:01 Last Admin: 10/30/16 23:32 Dose: 100 mls/hr Sodium Chloride (Normal Saline) 1,000 mls @ 125 mls/hr IV ASDIRECTED [facility] Last Admin: 10/31/16 09:43 Dose: 125 mls/hr Sodium Chloride (Normal Saline) 1,000 mls @ 250 mls/hr IV ASDIRECTED [facility] Stop: 11/01/16 03:16 Last Admin: 11/01/16 00:11 Dose: 125 mls/hr Insulin Aspart (Novolog) 0 unit SUBCUT ASDIRECTED [facility] PRN Reason: Protocol Ketorolac Tromethamine (Toradol) 15 mg IM ONETIME ONE Stop: 10/30/16 16:39 Last Admin: 10/30/16 17:22 Dose: 15 mg Magnesium Sulfate (Magnesium Sulfate 50%) Confirm Administered Dose 1 gm .ROUTE .STK-MED ONE Stop: 10/30/16 23:03 Last Admin: 10/30/16 23:34 Dose: 1 gm Multivitamins/Minerals (Infuvite Adult) Confirm Administered Dose 10 ml IV .STK- MED ONE Stop: 10/30/16 23:04 Last Admin: 10/30/16 23:34 Dose: 10 ml Oxycodone/Acetaminophen (Percocet 325-5 Mg) 2 tab PO ONETIME ONE Stop: 10/30/16 16:40 Last Admin: 10/30/16 17:20 Dose: 2 tab Patient's Own Medication 1 Each Simvastatin 40 Mg 0.5 each PO BEDTIME [facility] Thiamine HCl (Vitamin B-1) Confirm Administered Dose 200 mg .ROUTE .STK-MED ONE Stop: 10/30/16 23:03 Last Admin: 10/30/16 23:33 Dose: 200 mg *Q Meaningful Use (DIS) - VTE *Q VTE Criteria *Q: - Stroke *Q Stroke Criteria *Q: - AMI *Q AMI Criteria *Q:
--- NOTE | 2016-11-02 09:11 | CR ---
Lumbar Spine 2 or 3V HISTORY: Fall, pain COMPARISON: MRI scan 05/16/2007 FINDINGS: Moderate degenerative change. Grade 1 spondylolisthesis L5 on S1. 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 Loss of vertebral body height of L4 and L5 approximately 20-30% age ind eterminant.
[2016-11-02] MEDS: MVI, Adult with Vitamin K 10 ML SDV IV ONE (10:39)
[2016-11-02] MEDS: Magnesium Sulfate (4.06 MEQ/ML) 1 GM/2 ML SDV ONE (10:41)
[2016-11-02] MEDS: Folic Acid 50 MG/10 ML MDV ONE (10:43)
== END 2016-11-01 12:45 | disposition home health service (06) ==
LOC: JP.ED 16:20 → JP.MS 20:12
PROVIDERS: ADMIT Hospitalist; ATTEND Hospitalist
DX: G89.29 Other chronic pain (principal); M54.5 Low back pain; E11.22 Type 2 diabetes mellitus with diabetic chronic kidney disease; I12.9 Hypertensive chronic kidney disease with stage 1 through stage 4 chronic kidney disease, or unspecified chronic kidney disease; N18.3 Chronic kidney disease, stage 3 (moderate); E78.00 Pure hypercholesterolemia, unspecified; F10.10 Alcohol abuse, uncomplicated; N39.0 Urinary tract infection, site not specified; Z87.81 Personal history of (healed) traumatic fracture; Z98.890 Other specified postprocedural states
CPT/HCPCS: 36415; 70450; 72100; 72131; 80048; 80053; 81001; 82962; 85025; 85027; 87086; 87088; 87186; 96361; 96365; 96366; 96367; 96372; 96375; 97161; 99217; 99219; 99225; 99285; A9270; G0378; J0696; J1170; J1885; J2405; J3411; J3475; J7040; J7050; 96374; 99284; J3490

== ENCOUNTER 2018-08-07 19:54 | Inpatient (IN) | payer MEDICARE, OTHER ==
--- NOTE | 2018-08-07 20:09 | EDM.PDOC ---
ED HPI GENERAL MEDICAL PROBLEM - General Chief Complaint: General Stated Complaint: WEAKNESS BEEN DRINKING Time Seen by Provider: 08/07/18 19:56 Source of Information: Reports: Patient, EMS, Old Records History Limitations: Reports: No Limitations - History of Present Illness INITIAL COMMENTS - FREE TEXT/NARRATIVE: Joe is an 78 yo male who lives alone. A son from [facility] called his dad and found he was slurring his speech and weak. The son asked a neighbor lady to check on him and she called 911. EMS has responded to this residence before and both times found him living in [facility] with most of his oral intake consisting of Snicker's bars and alcohol. Today he was drinking a whiskey Coke upon their arrival. He has a known hx of alcohol abuse. Is diabetic and it is unclear if he has been taking any of his meds. Reportedly one of his 2 sons is flying home tomorrow to see the dad. EMS states that Joe had been driving up to a few days ago, now too weak to do so. Has a doctor, but cannot tell me who his doctor is. He can't tell me when he saw them last. He has no appetite. He reports no pain. His sons come to visit once a year during deer hunting to [place] [address]. Joe does not smoke. He is not currently getting any assistance with food, is supposed to make his own food, but he tends not to cook. Both sons lives out of the area. Joe has lived alone for about 20 yrs. He does not know his meds. Told nursing he hasn't taken any of his meds for at least 2-3 weeks. Onset: Gradual Duration: Chronic, Getting Worse Location: Reports: Generalized Quality: Reports: Other (no pain) Severity: Moderate (weakness) Improves with: Reports: None Worsens with: Reports: Other (time) Context: Reports: Other ( See HPI) Associated Symptoms: Reports: Loss of Appetite, Malaise, Weakness Treatments [employer]: Reports: Other (see below) (none) - Related Data Allergies Allergy/AdvReac Type Severity Reaction Status Date / Time No Known Allergies Allergy Verified 10/30/16 16:41 Home Meds: Home Meds Atenolol [Tenormin] 100 mg PO DAILY 03/10/13 [History] Simvastatin [Zocor] 20 mg PO BEDTIME 03/10/13 [History] amLODIPine [Norvasc] 2.5 mg PO BID 03/11/13 [History] glipiZIDE [Glucotrol XL] 2.5 mg PO BID 11/05/13 [History] Acetaminophen/HYDROcodone [[place] 325-5 MG] 1 tab PO Q4H PRN #20 tablet 11/01/16 [Rx] Sulfamethoxazole/Trimethoprim [Septra DS] 1 each PO BID #10 tab 11/01/16 [Rx] Magnesium Oxide [Magnesium] 400 mg PO BID 03/03/18 [History] metFORMIN [Glucophage XR] 500 mg PO BID 03/03/18 [History] Past Medical History HEENT History: Reports: None Cardiovascular History: Reports: High Cholesterol, Hypertension Gastrointestinal History: Reports: Colon Polyp, Gastritis Musculoskeletal History: Reports: Back Pain, Chronic, Fracture, Other (See Below ) Other Musculoskeletal History: Fx r ankle with pins Neurological History: Reports: Other (See Below) Other Neuro History: Fainting episodes Psychiatric History: Reports: Addiction Endocrine/Metabolic History: Reports: Diabetes, Type II Hematologic History: Reports: Blood Transfusion(s) - Infectious Disease History Infectious Disease History: Reports: Chicken Pox, Measles, Mumps, Shingles - Past Surgical History HEENT Surgical History: Reports: Cataract Surgery, Oral Surgery Cardiovascular Surgical History: Reports: None GI Surgical History: Reports: Colonoscopy, EGD Endocrine Surgical History: Reports: None Neurological Surgical History: Reports: None Musculoskeletal Surgical History: Reports: Carpal Tunnel Dermatological Surgical History: Reports: None Social & Family History - Family History Family Medical History: Noncontributory HEENT: Reports: None - Caffeine Use Caffeine Use: Reports: Soda ED ROS GENERAL - Review of Systems Review Of Systems: See Below Constitutional: Reports: Malaise, Weakness, Decreased Appetite HEENT: Reports: No Symptoms Respiratory: Reports: No Symptoms Cardiovascular: Reports: No Symptoms Endocrine: Reports: Fatigue GI/Abdominal: Reports: Decreased Appetite : Reports: No Symptoms Musculoskeletal: Reports: No Symptoms Skin: Reports: No Symptoms Neurological: Reports: No Symptoms Psychiatric: Reports: No Symptoms ED EXAM, GENERAL - Physical Exam Exam: See Below Exam Limited By: No Limitations General Appearance: Alert, No Apparent Distress, Thin Eye Exam: Bilateral Eye: Normal Inspection Ears: Normal External Exam, Normal Canal, Hearing Grossly Normal, Normal TMs Ear Exam: Bilateral Ear: Auricle Normal, Canal Normal, TM normal Nose: Normal Inspection, Normal Mucosa, No Blood Throat/Mouth: Normal Inspection, Normal Lips, Normal Oropharynx, Normal Voice, No Airway Compromise, Other (poor dentition ). No: Normal Teeth Head: Atraumatic, Normocephalic Neck: Normal Inspection Respiratory/Chest: No Respiratory Distress, Lungs Clear, Normal Breath Sounds, No Accessory Muscle Use Cardiovascular: Regular Rate, Rhythm, No Edema GI/Abdominal: Normal Bowel Sounds, Soft, Non-Tender, No Distention Back Exam: Normal Inspection. No: CVA Tenderness (R), CVA Tenderness (L) Extremities: Normal Inspection, Normal Range of Motion, Non-Tender, No Pedal Edema Neurological: Alert, Oriented, CN II-XII Intact, Normal Cognition, No Motor/ Sensory Deficits Psychiatric: Depressed Mood, Flat Affect. No: Tearful Skin Exam: Warm, Dry, Intact, Normal Color, No Rash Course - Vital Signs Text/Narrative:: Dr. Hurt called @ Last Recorded V/S: Last Vital Signs Temp 35.9 C 08/07/18 20:21 Pulse 100 08/07/18 20:21 Resp 16 08/07/18 20:21 BP 128/77 08/07/18 20:21 Pulse Ox 96 08/07/18 20:21 - Orders/Labs/Meds Orders: Active Orders 24 hr Category Date Time Status TSH ULTRASENSITIVE [CHEM] Stat Lab 08/07/18 20:28 Ordered UA W/MICROSCOPIC [URIN] Stat Lab 08/07/18 19:55 Ordered MVI, Adult with Vitamin K [Infuvite Adult] 10 ml Med 08/07/18 20:30 Active Thiamine [Vitamin B-1] 100 mg Folic Acid 1 mg Magnesium Sulfate [Magnesium Sulfate 50%] 3 gm Sodium Chloride 0.9% [Normal Saline] 1,000 ml IV ASDIRECTED Medication Orders Multivitamins/Minerals 10 ml/Thiamine HCl 100 mg/ Folic Acid 1 mg/ Magnesium Sulfate 3 gm/ Sodium Chloride 1,017.2 mls @ 500 mls/hr IV ASDIRECTED RAVEN Last Admin: 08/07/18 20:41 Dose: 500 mls/hr Labs: Laboratory Tests 08/07/18 08/07/18 08/07/18 Range/Units 20:03 20:03 20:03 WBC 7.9 (4.5-11.0) K/uL RBC 3.90 L (4.30-5.90) M/uL Hgb 11.9 L (12.0-15.0) g/dL Hct 36.1 L (40.0-54.0) % MCV 93 (80-98) fL MCH 31 (27-31) pg MCHC 33 (32-36) % Plt Count 197 (150-400) K/uL Sodium 141 (140-148) mmol/L Potassium 4.5 (3.6-5.2) mmol/L Chloride 100 (100-108) mmol/L Carbon Dioxide 24 (21-32) mmol/L Anion Gap 17.1 H (5.0-14.0) mmol/L BUN 23 H (7-18) mg/dL Creatinine 1.6 H (0.8-1.3) mg/dL Est Cr Clr Drug Dosing TNP Estimated GFR (MDRD) 42 L (>60) Glucose 150 H (74-106) mg/dL Calcium 9.4 D (8.5-10.1) mg/dL Magnesium (1.8-2.4) mg/dL Total Bilirubin 1.6 H (0.2-1.0) mg/dL AST 17 (15-37) U/L ALT 13 (12-78) U/L Alkaline Phosphatase 73 (46-116) U/L Total Protein 7.7 (6.4-8.2) g/dL Albumin 2.3 L (3.4-5.0) g/dL Globulin 5.4 H (2.3-3.5) g/dL Albumin/Globulin Ratio 0.4 L (1.2-2.2) Ethyl Alcohol 13 mg/dL 08/07/18 Range/Units 20:03 WBC (4.5-11.0) K/uL RBC (4.30-5.90) M/uL Hgb (12.0-15.0) g/dL Hct (40.0-54.0) % MCV (80-98) fL MCH (27-31) pg MCHC (32-36) % Plt Count (150-400) K/uL Sodium (140-148) mmol/L Potassium (3.6-5.2) mmol/L Chloride (100-108) mmol/L Carbon Dioxide (21-32) mmol/L Anion Gap (5.0-14.0) mmol/L BUN (7-18) mg/dL Creatinine (0.8-1.3) mg/dL Est Cr Clr Drug Dosing Estimated GFR (MDRD) (>60) Glucose (74-106) mg/dL Calcium (8.5-10.1) mg/dL Magnesium 1.6 L (1.8-2.4) mg/dL Total Bilirubin (0.2-1.0) mg/dL AST (15-37) U/L ALT (12-78) U/L Alkaline Phosphatase (46-116) U/L Total Protein (6.4-8.2) g/dL Albumin (3.4-5.0) g/dL Globulin (2.3-3.5) g/dL Albumin/Globulin Ratio (1.2-2.2) Ethyl Alcohol mg/dL Meds: Medications Generic Name Dose Route Start Last Admin Trade Name Freq PRN Reason Stop Dose Admin Multivitamins/Minerals 10 ml/ 1,017.2 mls @ 500 mls/hr 08/07/18 20:30 20:41 Thiamine HCl 100 mg/ Folic IV 500 mls/hr Acid 1 mg/ Magnesium Sulfate 3 ASDIRECTED RAVEN Administration gm/ Sodium Chloride Discontinued Medications Generic Name Dose Route Start Last Admin Trade Name Freq PRN Reason Stop Dose Admin Lactated Ringer's 1,000 mls @ 1,000 mls/hr 08/07/18 20:27 08/07/18 20:43 Ringers, Lactated IV 08/07/18 21:26 Not Given BOLUS ONE Magnesium Sulfate 2 gm/ Premix 50 mls @ 12.5 mls/hr 08/07/18 20:27 08/07/18 20:43 IV 08/08/18 00:26 Not Given ONETIME ONE Magnesium Oxide 800 mg 08/07/18 20:27 08/07/18 20:43 Magnesium Oxide PO 08/07/18 20:28 800 mg ONETIME ONE Administration Departure - Departure Time of Disposition: 21:10 Disposition: Refer to Observation Condition: Fair Clinical Impression: Weakness, Cachexia, Alcohol abuse, Hypomagnesemia, Social isolation Protein calorie malnutrition Qualifiers: Protein-calorie malnutrition severity: moderate Qualified Code(s): E44.0 - Moderate protein-calorie malnutrition - Discharge Information *PRESCRIPTION DRUG MONITORING PROGRAM REVIEWED*: No *COPY OF PRESCRIPTION DRUG MONITORING REPORT IN PATIENT CASA: No Referrals: PCP,None [Primary Care Provider] - Forms: ED Department Discharge - My Orders Last 24 Hours: My Active Orders 08/07/18 19:55 UA W/MICROSCOPIC [URIN] Stat 08/07/18 20:28 TSH ULTRASENSITIVE [CHEM] Stat 08/07/18 20:30 MVI, Adult with Vitamin K [Infuvite Adult] 10 ml Thiamine [Vitamin B-1] 100 mg Folic Acid 1 mg Magnesium Sulfate [Magnesium Sulfate 50%] 3 gm Sodium Chloride 0.9% [Normal Saline] 1,000 ml IV ASDIRECTED - Assessment/Plan Last 24 Hours: My Active Orders 08/07/18 19:55 UA W/MICROSCOPIC [URIN] Stat 08/07/18 20:28 TSH ULTRASENSITIVE [CHEM] Stat 08/07/18 20:30 MVI, Adult with Vitamin K [Infuvite Adult] 10 ml Thiamine [Vitamin B-1] 100 mg Folic Acid 1 mg Magnesium Sulfate [Magnesium Sulfate 50%] 3 gm Sodium Chloride 0.9% [Normal Saline] 1,000 ml IV ASDIRECTED
[2018-08-07] MEDS ORDERED: Lactated Ringers 1,000 ML IV ONE (20:27)
[2018-08-07] MEDS ORDERED: Magnesium Oxide 400 MG Tab PO ONE (20:27)
[2018-08-07] MEDS ORDERED: Magnesium Sulfate/Water 2 GM in Premix Bag 1 BAG IV ONE (20:27)
[2018-08-07] MEDS ORDERED: MVI, Adult with Vitamin K 10 ML, Thiamine 100 MG, Folic Acid 1 MG, Magnesium Sulfate 3 ... IV SCH ×5 (20:30)
--- NOTE | 2018-08-07 21:31 | PCM.HP ---
H&P History of Present Illness - General Date of Service: 08/07/18 - History of Present Illness Initial Comments - Free Text/Narative: 78-year-old male with past medical history of diabetes on metformin medication, hypertension on amlodipine medication, significant alcohol abuse, severe malnutrition, peripheral vascular disease, hyperlipidemia, hypomagnesemia, CKD stage III, GERD previous history of pleural effusion, diabetic ulcer status post surgical management, previous history of atrial fibrillation, questionable COPD who came to the ED with concerns of weakness associated with unable to walk since last 2 days. Patient has significant alcohol abuse and last intake was today in the morning. Patient reports that he has been unable to walk since last 2 days and associated with pain in the left lower extremity. Patient reports that the pain is 2-3/10 intensity, cramping type pain, intermittent. Patient denies any recent fall, injury. Patient reports that he had multiple falls in the past. Patient last office visit was in 03/2018 at that time strongly recommended to not to drink alcohol and to continue diet management. In the ED patient labs are at baseline. Patient lives alone and patient refused multiple home care team appointments before. Patient is a full code. Patient denies any chest pain, exertional chest pain, headaches, dizziness, lightheadedness, palpitations, orthopnea, PND and pedal edema. Denies any nausea, vomiting, abdominal pains. Other review of systems are not significant. - Related Data Allergies/Adverse Reactions: Allergies Allergy/AdvReac Type Severity Reaction Status Date / Time No Known Allergies Allergy Verified 10/30/16 16:41 Home Medications: Home Meds Simvastatin [Zocor] 20 mg PO BEDTIME 03/10/13 [History] Magnesium Oxide [Magnesium] 400 mg PO BID 03/03/18 [History] metFORMIN [Glucophage XR] 500 mg PO BID 03/03/18 [History] Lactose-Reduced Food [Boost High Protein] 237 ml PO TID 08/07/18 [History] Past Medical History HEENT History: Reports: None Cardiovascular History: Reports: High Cholesterol, Hypertension Gastrointestinal History: Reports: Colon Polyp, Gastritis Musculoskeletal History: Reports: Back Pain, Chronic, Fracture, Other (See Below ) Other Musculoskeletal History: Fx r ankle with pins Neurological History: Reports: Other (See Below) Other Neuro History: Fainting episodes Psychiatric History: Reports: Addiction Endocrine/Metabolic History: Reports: Diabetes, Type II Hematologic History: Reports: Blood Transfusion(s) - Infectious Disease History Infectious Disease History: Reports: Chicken Pox, Measles, Mumps, Shingles - Past Surgical History HEENT Surgical History: Reports: Cataract Surgery, Oral Surgery Cardiovascular Surgical History: Reports: None GI Surgical History: Reports: Colonoscopy, EGD Endocrine Surgical History: Reports: None Neurological Surgical History: Reports: None Musculoskeletal Surgical History: Reports: Carpal Tunnel Dermatological Surgical History: Reports: None Social & Family History - Family History Family Medical History: Noncontributory HEENT: Reports: None - Tobacco Use Smoking Status *Q: Current Every Day Smoker Years of Tobacco use: 66 Packs/Tins Daily: 0.5 - Caffeine Use Caffeine Use: Reports: Soda - Alcohol Use Days Per Week of Alcohol Use: 7 Number of Drinks Per Day: 10 Total Drinks Per Week: 70 - Recreational Drug Use Recreational Drug Use: No H&P Review of Systems - Review of Systems: Review Of Systems: See Below General: Reports: Malaise, Weakness, Fatigue. Denies: Fever, Chills Pulmonary: Denies: Shortness of Breath, Wheezing, Pleuritic Chest Pain Cardiovascular: Denies: Chest Pain, Palpitations, Dyspnea on Exertion, Orthopnea , PND Gastrointestinal: Reports: Anorexia. Denies: Abdominal Pain, Black Stool, Bloody Stool, Constipation, Diarrhea Genitourinary: Denies: Dysuria, Frequency, Burning, Pain Musculoskeletal: Denies: Neck Pain, Shoulder Pain, Arm Pain, Back Pain Skin: Denies: Cyanosis, Jaundice, Mottled Psychiatric: Reports: Depression, Mood Lability, Agitation. Denies: Confusion, Anxiety Neurological: Denies: Confusion, Dizziness Hematologic/Lymphatic: Denies: Anemia, Easy Bleeding Exam - Exam Exam: See Below - Vital Signs Vital Signs: Last Vital Signs Temp 35.9 C 08/07/18 20:21 Pulse 78 08/07/18 21:26 Resp 16 08/07/18 20:21 BP 138/80 08/07/18 21:26 Pulse Ox 96 08/07/18 20:21 Weight: 72.575 kg - Exam Quality Assessment: No: Supplemental Oxygen General: Alert, Oriented, Cooperative HEENT: PERRLA, Conjunctiva Clear Neck: Supple, Trachea Midline Lungs: Clear to Auscultation, Normal Respiratory Effort Cardiovascular: Regular Rate, Regular Rhythm GI/Abdominal Exam: Normal Bowel Sounds, Soft, Non-Tender Extremities: Leg Pain, Limited Range of Motion. No: Pedal Edema, Increased Warmth, Mottled, Pallor, Redness - Patient Data Lab Results Last 24 hrs: Laboratory Results - last 24 hr 08/07/18 08/07/18 08/07/18 Range/Units 20:03 20:03 20:03 WBC 7.9 (4.5-11.0) K/uL RBC 3.90 L (4.30-5.90) M/uL Hgb 11.9 L (12.0-15.0) g/dL Hct 36.1 L (40.0-54.0) % MCV 93 (80-98) fL MCH 31 (27-31) pg MCHC 33 (32-36) % Plt Count 197 (150-400) K/uL Sodium 141 (140-148) mmol/L Potassium 4.5 (3.6-5.2) mmol/L Chloride 100 (100-108) mmol/L Carbon Dioxide 24 (21-32) mmol/L Anion Gap 17.1 H (5.0-14.0) mmol/L BUN 23 H (7-18) mg/dL Creatinine 1.6 H (0.8-1.3) mg/dL Est Cr Clr Drug Dosing TNP Estimated GFR (MDRD) 42 L (>60) Glucose 150 H (74-106) mg/dL Calcium 9.4 D (8.5-10.1) mg/dL Magnesium (1.8-2.4) mg/dL Total Bilirubin 1.6 H (0.2-1.0) mg/dL AST 17 (15-37) U/L ALT 13 (12-78) U/L Alkaline Phosphatase 73 (46-116) U/L Total Protein 7.7 (6.4-8.2) g/dL Albumin 2.3 L (3.4-5.0) g/dL Globulin 5.4 H (2.3-3.5) g/dL Albumin/Globulin Ratio 0.4 L (1.2-2.2) TSH, Ultra Sensitive (0.358-3.740) uIU/mL Ethyl Alcohol 13 mg/dL 08/07/18 08/07/18 Range/Units 20:03 20:28 WBC (4.5-11.0) K/uL RBC (4.30-5.90) M/uL Hgb (12.0-15.0) g/dL Hct (40.0-54.0) % MCV (80-98) fL MCH (27-31) pg MCHC (32-36) % Plt Count (150-400) K/uL Sodium (140-148) mmol/L Potassium (3.6-5.2) mmol/L Chloride (100-108) mmol/L Carbon Dioxide (21-32) mmol/L Anion Gap (5.0-14.0) mmol/L BUN (7-18) mg/dL Creatinine (0.8-1.3) mg/dL Est Cr Clr Drug Dosing Estimated GFR (MDRD) (>60) Glucose (74-106) mg/dL Calcium (8.5-10.1) mg/dL Magnesium 1.6 L (1.8-2.4) mg/dL Total Bilirubin (0.2-1.0) mg/dL AST (15-37) U/L ALT (12-78) U/L Alkaline Phosphatase (46-116) U/L Total Protein (6.4-8.2) g/dL Albumin (3.4-5.0) g/dL Globulin (2.3-3.5) g/dL Albumin/Globulin Ratio (1.2-2.2) TSH, Ultra Sensitive 2.338 (0.358-3.740) uIU/mL Ethyl Alcohol mg/dL Result Diagrams: 08/08/18 04:50 08/08/18 04:50 - Problem List (1) Diabetes SNOMED Code(s): 67590616 ICD Code: E11.9 - TYPE 2 DIABETES MELLITUS WITHOUT COMPLICATIONS Status: Acute Current Visit: Yes (2) Hyperlipemia SNOMED Code(s): 55586268 ICD Code: E78.5 - HYPERLIPIDEMIA, UNSPECIFIED Status: Acute Current Visit : Yes (3) Hypertension SNOMED Code(s): 11651411 ICD Code: I10 - ESSENTIAL (PRIMARY) HYPERTENSION Status: Acute Current Visit: Yes (4) Afib SNOMED Code(s): 00136729 ICD Code: I48.91 - UNSPECIFIED ATRIAL FIBRILLATION Status: Acute Current Visit: Yes (5) PVD (peripheral vascular disease) SNOMED Code(s): 973278550 ICD Code: I73.9 - PERIPHERAL VASCULAR DISEASE, UNSPECIFIED Status: Acute Current Visit: Yes (6) Alcohol abuse SNOMED Code(s): 77321401 ICD Code: F10.10 - ALCOHOL ABUSE, UNCOMPLICATED Status: Acute Current Visit: Yes (7) Cachexia SNOMED Code(s): 292196655 ICD Code: R64 - CACHEXIA Status: Acute Current Visit: Yes (8) Hypomagnesemia SNOMED Code(s): 316146768 ICD Code: E83.42 - HYPOMAGNESEMIA Status: Acute Current Visit: Yes (9) Protein calorie malnutrition SNOMED Code(s): 966976270 ICD Code: E46 - UNSPECIFIED PROTEIN-CALORIE MALNUTRITION Status: Acute Current Visit: Yes Qualifiers: Protein-calorie malnutrition severity: moderate Qualified Code(s): E44.0 - Moderate protein-calorie malnutrition (10) Social isolation SNOMED Code(s): 473899662 ICD Code: Z60.4 - SOCIAL EXCLUSION AND REJECTION Status: Acute Current Visit: Yes (11) Weakness SNOMED Code(s): 04604644 ICD Code: R53.1 - WEAKNESS Status: Acute Current Visit: Yes (12) Alcohol dependence syndrome SNOMED Code(s): 56613689 ICD Code: F10.20 - ALCOHOL DEPENDENCE, UNCOMPLICATED Status: Chronic Current Visit: Yes Qualifiers: Substance use status: uncomplicated Qualified Code(s): F10.20 - Alcohol dependence, uncomplicated (13) Acute exacerbation of chronic low back pain SNOMED Code(s): 868013488 ICD Code: M54.5 - LOW BACK PAIN; G89.29 - OTHER CHRONIC PAIN Status: Acute Current Visit: No (14) CKD (chronic kidney disease) stage 3, GFR 30-59 ml/min SNOMED Code(s): 926772923 ICD Code: N18.3 - CHRONIC KIDNEY DISEASE, STAGE 3 (MODERATE) Status: Chronic Current Visit: No (15) COPD (chronic obstructive pulmonary disease) SNOMED Code(s): 42194421 ICD Code: J44.9 - CHRONIC OBSTRUCTIVE PULMONARY DISEASE, UNSPECIFIED Status : Chronic Current Visit: No (16) Diabetes mellitus type 2 SNOMED Code(s): 57516957 ICD Code: E11.9 - TYPE 2 DIABETES MELLITUS WITHOUT COMPLICATIONS Status: Chronic Current Visit: No Problem List Initiated/Reviewed/Updated: Yes Orders Last 24hrs: Active Orders 24 hr Category Date Time Status UA W/MICROSCOPIC [URIN] Stat Lab 08/07/18 19:55 Ordered MVI, Adult with Vitamin K [Infuvite Adult] 10 ml Med 08/07/18 20:30 Active Thiamine [Vitamin B-1] 100 mg Folic Acid 1 mg Magnesium Sulfate [Magnesium Sulfate 50%] 3 gm Sodium Chloride 0.9% [Normal Saline] 1,000 ml IV ASDIRECTED Medication Orders Multivitamins/Minerals 10 ml/Thiamine HCl 100 mg/ Folic Acid 1 mg/ Magnesium Sulfate 3 gm/ Sodium Chloride 1,017.2 mls @ 500 mls/hr IV ASDIRECTED RAVEN Last Admin: 08/07/18 20:41 Dose: 500 mls/hr Assessment/Plan Comment:: 78-year-old male with past medical history of diabetes, hypertension, hyperlipidemia, chronic alcohol abuse, atrial fibrillation, peripheral vascular disease came to the ED with the complaining of weakness and altered mental status and admitted into the inpatient status for further management Patient creatinine is at baseline Patient has significant Malnourished status Patient blood alcohol levels are positive We will continue CIWA protocol Patient received [address] him on D5 half-normal saline 150 mL/h We will check B12 folate, thiamine along with ammonia with a concerns of significant alcohol abuse Patient is living alone and unable to take care of himself We will consult social service will follow the recommendations Last HbA1c 5 months ago was 5.[address] him on sliding scale insulin CBC, CMP and magnesium tomorrow Patient has chronic hypomagnesemia due to alcohol abuse We will supplement magnesium accordingly IV fluids D5 half-normal saline at 150 mL/h Diet regular diet CODE STATUS full code Hutchinson catheter not indicated Inpatient status
[2018-08-07] MEDS ORDERED: Ondansetron 4 MG/2 ML SDV IV PRN (22:08)
[2018-08-07] MEDS ORDERED: Pantoprazole 40 MG Vial IV SCH (22:15)
[2018-08-07] MEDS ORDERED: Albuterol 0.083% 2.5 MG/3 ML Neb Soln NEB PRN (22:16)
[2018-08-07] MEDS: Heparin Sodium 5,000 Units/ML Vial SUBCUT SCH (23:38)
[2018-08-07] MEDS: Dextrose 5%-0.45% NaCl 1,000 ML IV SCH (23:40)
[2018-08-08] MEDS: Heparin Sodium 5,000 Units/ML Vial SUBCUT SCH ×3 (06:28→22:04)
[2018-08-08] MEDS: Dextrose 5%-0.45% NaCl 1,000 ML IV SCH ×2 (06:29→14:10)
[2018-08-08] MEDS: Insulin Lispro 100 Unit/ML 3 ML KwikPen SUBCUT SCH ×2 (07:55→17:39)
[2018-08-08 10:35] LABS: HEMOGLOBIN A1C 6.2 % (4.5-6.2)
--- NOTE | 2018-08-08 10:58 | PCM.PN ---
- General Info Date of Service: 08/08/18 Subjective Update: There were no acute events overnight. The patient reports that he feels very weak and feels tired but otherwise feels okay. He does not endorse abdominal pain or nausea. Mild cough but no shortness of breath. He is agreeable to going to a transitional care unit for strengthening if needed after the hospital stay. Appetite has improved today. Functional Status: Reports: Pain Controlled - Review of Systems General: Reports: Weakness Gastrointestinal: Denies: Abdominal Pain - Patient Data Vitals - Most Recent: Last Vital Signs Temp 35.4 C 08/08/18 07:03 Pulse 73 08/08/18 07:03 Resp 14 08/08/18 07:03 BP 134/73 08/08/18 07:03 Pulse Ox 100 08/08/18 07:03 Weight - Most Recent: 63.458 kg I&O - Last 24 Hours: Intake & Output 08/07/18 08/08/18 08/08/18 22:59 06:59 14:59 Intake Total 1060 360 Output Total 175 Balance 1060 185 Lab Results Last 24 Hours: Laboratory Results - last 24 hr 08/07/18 08/07/18 08/07/18 Range/Units 20:00 20:00 20:00 WBC (4.5-11.0) K/uL RBC (4.30-5.90) M/uL Hgb (12.0-15.0) g/dL Hct (40.0-54.0) % MCV (80-98) fL MCH (27-31) pg MCHC (32-36) % Plt Count (150-400) K/uL PT 11.6 (9.5-12.0) sec INR 1.06 (0.80-1.20) Sodium (140-148) mmol/L Potassium (3.6-5.2) mmol/L Chloride (100-108) mmol/L Carbon Dioxide (21-32) mmol/L Anion Gap (5.0-14.0) mmol/L BUN (7-18) mg/dL Creatinine (0.8-1.3) mg/dL Est Cr Clr Drug Dosing Estimated GFR (MDRD) (>60) Glucose (74-106) mg/dL Hemoglobin A1c (4.5-6.2) % Calcium (8.5-10.1) mg/dL Phosphorus (2.5-4.9) mg/dL Magnesium (1.8-2.4) mg/dL Total Bilirubin (0.2-1.0) mg/dL Direct Bilirubin (0.0-0.2) mg/dL AST (15-37) U/L ALT (12-78) U/L Alkaline Phosphatase (46-116) U/L Ammonia 6 L (11-32) mmol/L Total Protein (6.4-8.2) g/dL Albumin (3.4-5.0) g/dL Globulin (2.3-3.5) g/dL Albumin/Globulin Ratio (1.2-2.2) Vitamin B12 384 (193-986) pg/ml TSH, Ultra Sensitive (0.358-3.740) uIU/mL Urine Color Urine Appearance Urine pH Ur Specific [place] Urine Protein Urine Glucose (UA) Urine Ketones Urine Occult Blood Urine Nitrite Urine Bilirubin Urine Urobilinogen Ur Leukocyte Esterase Urine RBC Urine WBC Ur Epithelial Cells Amorphous Sediment Urine Bacteria Urine Mucus Urine Other Urinalysis Comment Ethyl Alcohol mg/dL 08/07/18 08/07/18 08/07/18 Range/Units 20:00 20:00 20:03 WBC 7.9 (4.5-11.0) K/uL RBC 3.90 L (4.30-5.90) M/uL Hgb 11.9 L (12.0-15.0) g/dL Hct 36.1 L (40.0-54.0) % MCV 93 (80-98) fL MCH 31 (27-31) pg MCHC 33 (32-36) % Plt Count 197 (150-400) K/uL PT (9.5-12.0) sec INR (0.80-1.20) Sodium (140-148) mmol/L Potassium (3.6-5.2) mmol/L Chloride (100-108) mmol/L Carbon Dioxide (21-32) mmol/L Anion Gap (5.0-14.0) mmol/L BUN (7-18) mg/dL Creatinine (0.8-1.3) mg/dL Est Cr Clr Drug Dosing Estimated GFR (MDRD) (>60) Glucose (74-106) mg/dL Hemoglobin A1c 6.2 (4.5-6.2) % Calcium (8.5-10.1) mg/dL Phosphorus (2.5-4.9) mg/dL Magnesium (1.8-2.4) mg/dL Total Bilirubin (0.2-1.0) mg/dL Direct Bilirubin 1.11 H (0.0-0.2) mg/dL AST (15-37) U/L ALT (12-78) U/L Alkaline Phosphatase (46-116) U/L Ammonia (11-32) mmol/L Total Protein (6.4-8.2) g/dL Albumin (3.4-5.0) g/dL Globulin (2.3-3.5) g/dL Albumin/Globulin Ratio (1.2-2.2) Vitamin B12 (193-986) pg/ml TSH, Ultra Sensitive (0.358-3.740) uIU/mL Urine Color Urine Appearance Urine pH Ur Specific [place] Urine Protein Urine Glucose (UA) Urine Ketones Urine Occult Blood Urine Nitrite Urine Bilirubin Urine Urobilinogen Ur Leukocyte Esterase Urine RBC Urine WBC Ur Epithelial Cells Amorphous Sediment Urine Bacteria Urine Mucus Urine Other Urinalysis Comment Ethyl Alcohol mg/dL 08/07/18 08/07/18 08/07/18 Range/Units 20:03 20:03 20:03 WBC (4.5-11.0) K/uL RBC (4.30-5.90) M/uL Hgb (12.0-15.0) g/dL Hct (40.0-54.0) % MCV (80-98) fL MCH (27-31) pg MCHC (32-36) % Plt Count (150-400) K/uL PT (9.5-12.0) sec INR (0.80-1.20) Sodium 141 (140-148) mmol/L Potassium 4.5 (3.6-5.2) mmol/L Chloride 100 (100-108) mmol/L Carbon Dioxide 24 (21-32) mmol/L Anion Gap 17.1 H (5.0-14.0) mmol/L BUN 23 H (7-18) mg/dL Creatinine 1.6 H (0.8-1.3) mg/dL Est Cr Clr Drug Dosing TNP Estimated GFR (MDRD) 42 L (>60) Glucose 150 H (74-106) mg/dL Hemoglobin A1c (4.5-6.2) % Calcium 9.4 D (8.5-10.1) mg/dL Phosphorus (2.5-4.9) mg/dL Magnesium 1.6 L (1.8-2.4) mg/dL Total Bilirubin 1.6 H (0.2-1.0) mg/dL Direct Bilirubin (0.0-0.2) mg/dL AST 17 (15-37) U/L ALT 13 (12-78) U/L Alkaline Phosphatase 73 (46-116) U/L Ammonia (11-32) mmol/L Total Protein 7.7 (6.4-8.2) g/dL Albumin 2.3 L (3.4-5.0) g/dL Globulin 5.4 H (2.3-3.5) g/dL Albumin/Globulin Ratio 0.4 L (1.2-2.2) Vitamin B12 (193-986) pg/ml TSH, Ultra Sensitive (0.358-3.740) uIU/mL Urine Color Urine Appearance Urine pH Ur Specific [place] Urine Protein Urine Glucose (UA) Urine Ketones Urine Occult Blood Urine Nitrite Urine Bilirubin Urine Urobilinogen Ur Leukocyte Esterase Urine RBC Urine WBC Ur Epithelial Cells Amorphous Sediment Urine Bacteria Urine Mucus Urine Other Urinalysis Comment Ethyl Alcohol 13 mg/dL 08/07/18 08/08/18 08/08/18 Range/Units 20:28 04:50 04:50 WBC 6.1 (4.5-11.0) K/uL RBC 3.29 L (4.30-5.90) M/uL Hgb 9.9 L D (12.0-15.0) g/dL Hct 30.3 L (40.0-54.0) % MCV 92 (80-98) fL MCH 30 (27-31) pg MCHC 33 (32-36) % Plt Count 150 (150-400) K/uL PT (9.5-12.0) sec INR (0.80-1.20) Sodium 137 L (140-148) mmol/L Potassium 3.6 (3.6-5.2) mmol/L Chloride 98 L (100-108) mmol/L Carbon Dioxide 27 (21-32) mmol/L Anion Gap 15.6 H (5.0-14.0) mmol/L BUN 19 H (7-18) mg/dL Creatinine 1.4 H (0.8-1.3) mg/dL Est Cr Clr Drug Dosing 37.77 Estimated GFR (MDRD) 49 L (>60) Glucose 189 H (74-106) mg/dL Hemoglobin A1c (4.5-6.2) % Calcium 8.4 L (8.5-10.1) mg/dL Phosphorus 2.7 (2.5-4.9) mg/dL Magnesium 2.2 (1.8-2.4) mg/dL Total Bilirubin 1.2 H (0.2-1.0) mg/dL Direct Bilirubin (0.0-0.2) mg/dL AST 16 (15-37) U/L ALT 9 L (12-78) U/L Alkaline Phosphatase 58 (46-116) U/L Ammonia (11-32) mmol/L Total Protein 6.4 (6.4-8.2) g/dL Albumin 1.9 L (3.4-5.0) g/dL Globulin 4.5 H (2.3-3.5) g/dL Albumin/Globulin Ratio 0.4 L (1.2-2.2) Vitamin B12 (193-986) pg/ml TSH, Ultra Sensitive 2.338 (0.358-3.740) uIU/mL Urine Color Urine Appearance Urine pH Ur Specific [place] Urine Protein Urine Glucose (UA) Urine Ketones Urine Occult Blood Urine Nitrite Urine Bilirubin Urine Urobilinogen Ur Leukocyte Esterase Urine RBC Urine WBC Ur Epithelial Cells Amorphous Sediment Urine Bacteria Urine Mucus Urine Other Urinalysis Comment Ethyl Alcohol mg/dL 08/08/18 Range/Units 07:49 WBC (4.5-11.0) K/uL RBC (4.30-5.90) M/uL Hgb (12.0-15.0) g/dL Hct (40.0-54.0) % MCV (80-98) fL MCH (27-31) pg MCHC (32-36) % Plt Count (150-400) K/uL PT (9.5-12.0) sec INR (0.80-1.20) Sodium (140-148) mmol/L Potassium (3.6-5.2) mmol/L Chloride (100-108) mmol/L Carbon Dioxide (21-32) mmol/L Anion Gap (5.0-14.0) mmol/L BUN (7-18) mg/dL Creatinine (0.8-1.3) mg/dL Est Cr Clr Drug Dosing Estimated GFR (MDRD) (>60) Glucose (74-106) mg/dL Hemoglobin A1c (4.5-6.2) % Calcium (8.5-10.1) mg/dL Phosphorus (2.5-4.9) mg/dL Magnesium (1.8-2.4) mg/dL Total Bilirubin (0.2-1.0) mg/dL Direct Bilirubin (0.0-0.2) mg/dL AST (15-37) U/L ALT (12-78) U/L Alkaline Phosphatase (46-116) U/L Ammonia (11-32) mmol/L Total Protein (6.4-8.2) g/dL Albumin (3.4-5.0) g/dL Globulin (2.3-3.5) g/dL Albumin/Globulin Ratio (1.2-2.2) Vitamin B12 (193-986) pg/ml TSH, Ultra Sensitive (0.358-3.740) uIU/mL Urine Color Cancelled Urine Appearance Cancelled Urine pH Cancelled Ur Specific [place] Cancelled Urine Protein Cancelled Urine Glucose (UA) Cancelled Urine Ketones Cancelled Urine Occult Blood Cancelled Urine Nitrite Cancelled Urine Bilirubin Cancelled Urine Urobilinogen Cancelled Ur Leukocyte Esterase Cancelled Urine RBC Cancelled Urine WBC Cancelled Ur Epithelial Cells Cancelled Amorphous Sediment Cancelled Urine Bacteria Cancelled Urine Mucus Cancelled Urine Other Cancelled Urinalysis Comment Cancelled Ethyl Alcohol mg/dL Med Orders - Current: Current Medications Albuterol (Proventil Neb Soln) 2.5 mg NEB Q6H PRN PRN Reason: Shortness of Breath Heparin Sodium (Porcine) (Heparin Sodium) 5,000 units SUBCUT Q8H [facility] Last Admin: 08/08/18 06:28 Dose: 5,000 units Dextrose/Sodium Chloride (Dextrose 5%-1/2 Ns) 1,000 mls @ 100 mls/hr IV ASDIRECTED [facility] Insulin Human Lispro (Humalog) 0 unit SUBCUT BIDMEALS [facility]; Protocol Last Admin: 08/08/18 07:55 Dose: 1 unit Ondansetron HCl (Zofran) 4 mg IV Q4H PRN PRN Reason: Nausea/Vomiting Pantoprazole Sodium (Protonix) 40 mg PO ACBREAKFAST [facility] Discontinued Medications Lactated Ringer's (Ringers, Lactated) 1,000 mls @ 1,000 mls/hr IV BOLUS ONE Stop: 08/07/18 21:26 Last Admin: 08/07/18 20:43 Dose: Not Given Magnesium Sulfate 2 gm/ Premix 50 mls @ 12.5 mls/hr IV ONETIME ONE Stop: 08/08/18 00:26 Last Admin: 08/07/18 20:43 Dose: Not Given Multivitamins/Minerals 10 ml/Thiamine HCl 100 mg/ Folic Acid 1 mg/ Magnesium Sulfate 3 gm/ Sodium Chloride 1,017.2 mls @ 500 mls/hr IV ASDIRECTED [facility] Last Admin: 08/07/18 20:41 Dose: 500 mls/hr Dextrose/Sodium Chloride (Dextrose 5%-1/2 Ns) 1,000 mls @ 150 mls/hr IV ASDIRECTED [facility] Last Admin: 08/08/18 06:29 Dose: 150 mls/hr Magnesium Oxide (Magnesium Oxide) 800 mg PO ONETIME ONE Stop: 08/07/18 20:28 Last Admin: 08/07/18 20:43 Dose: 800 mg Pantoprazole Sodium (Protonix Iv) 40 mg IV BEDTIME [facility] Last Admin: 08/07/18 23:39 Dose: 40 mg - Exam Quality Assessment: No: Supplemental Oxygen General: Alert, Oriented, Cooperative, No Acute Distress Lungs: Clear to Auscultation, Normal Respiratory Effort Cardiovascular: Regular Rate, Regular Rhythm, Murmurs GI/Abdominal Exam: Normal Bowel Sounds, Soft, No Distention Extremities: No Pedal Edema Skin: Warm, Dry Psy/Mental Status: Alert - Problem List & Annotations (1) Weakness SNOMED Code(s): 65188169 Code(s): R53.1 - WEAKNESS Status: Acute Current Visit: Yes (2) Alcohol dependence syndrome SNOMED Code(s): 82823339 Code(s): F10.20 - ALCOHOL DEPENDENCE, UNCOMPLICATED Status: Chronic Current Visit: Yes Qualifiers: Substance use status: uncomplicated Qualified Code(s): F10.20 - Alcohol dependence, uncomplicated (3) Diabetes mellitus type 2 SNOMED Code(s): 51970876 Code(s): E11.9 - TYPE 2 DIABETES MELLITUS WITHOUT COMPLICATIONS Status: Chronic Current Visit: No - Problem List Review Problem List Initiated/Reviewed/Updated: No - My Orders Last 24 Hours: My Active Orders 08/08/18 10:55 Discontinue Telemetry Monitoring [Cardiac Monitoring Discontinue] [RC] Click to Edit Up With Assistance [RC] ASDIRECTED 08/08/18 11:00 Dextrose 5%-0.45% NaCl [Dextrose 5%-1/2 NS] 1,000 ml IV ASDIRECTED 08/09/18 05:00 BASIC METABOLIC PANEL,BMP [CHEM] Timed CBC W/O DIFF,HEMOGRAM [HEME] Timed (1) 08/09/18 07:30 Pantoprazole [ProTONIX] 40 mg PO ACBREAKFAST - Plan Plan:: ASSESSMENT AND PLAN - Generalized weakness - multifactorial with contribution from acute on chronic dehydration as well as deconditioning the setting of chronic alcohol use. No evidence for active infection. -Gentle hydration -Physical therapy and occupational therapy -Anticipate discharge to skilled nursing for subacute rehabilitation Alcohol dependence - no evidence for withdrawal. Patient has a long-standing history of daily alcohol use. -Monitor for evidence of alcohol withdrawal -Supplement thiamine and folate Type 2 diabetes mellitus - patient has not been taking medications for some time. Blood sugars mildly elevated. -Monitor blood sugars, discuss restarting metformin if necessary and patient is interested Stage III chronic kidney disease - creatinine is near baseline at this time and has improved with hydration overnight. Maintenance issues - - DVT prophylaxis - mechanical - GI prophylaxis - PPI - Nutrition - regular Disposition - I would anticipate discharge to the skilled nursing for subacute rehabilitation after the hospital stay Dimitry Cotton M.D.
[2018-08-09] MEDS: Dextrose 5%-0.45% NaCl 1,000 ML IV SCH ×3 (00:07→20:23)
[2018-08-09] MEDS: Heparin Sodium 5,000 Units/ML Vial SUBCUT SCH ×3 (06:07→22:53)
[2018-08-09] MEDS: Insulin Lispro 100 Unit/ML 3 ML KwikPen SUBCUT SCH ×2 (07:56→18:06)
[2018-08-09] MEDS: Pantoprazole 40 MG Tab.CR PO SCH (07:56)
[2018-08-09] MEDS: Folic Acid 1 MG Tab PO SCH (08:00)
[2018-08-09] MEDS: Thiamine 100 MG Tab PO SCH (08:00)
[2018-08-09] MEDS ORDERED: Benzonatate 100 MG Cap PO PRN (10:25)
--- NOTE | 2018-08-09 10:28 | PCM.PN ---
- General Info Date of Service: 08/09/18 Subjective Update: There were no acute events overnight. Patient says he still feels weak and tired. He is also complaining of a progressive cough. This is been present for several days but has been more and more bothersome. He doesn't feel short of breath. He doesn't have pleuritic chest pain. He does not produce sputum. While working with physical therapy yesterday he was able to stand with a great deal of effort but was not able to stand very long. He has not had any fevers. Functional Status: Reports: Pain Controlled, Tolerating Diet - Review of Systems General: Reports: Weakness Pulmonary: Reports: Cough. Denies: Pleuritic Chest Pain - Patient Data Vitals - Most Recent: Last Vital Signs Temp 36.4 C 08/09/18 07:15 Pulse 81 08/09/18 07:15 Resp 16 08/09/18 07:15 BP 116/63 08/09/18 07:15 Pulse Ox 97 08/09/18 07:15 Weight - Most Recent: 72.575 kg I&O - Last 24 Hours: Intake & Output 08/08/18 08/09/18 08/09/18 22:59 06:59 14:59 Intake Total 1764 1246 60 Output Total 150 300 Balance 1614 946 60 Lab Results Last 24 Hours: Laboratory Results - last 24 hr 08/07/18 08/09/18 08/09/18 Range/Units 20:00 05:10 05:10 WBC 6.5 (4.5-11.0) K/uL RBC 3.15 L (4.30-5.90) M/uL Hgb 9.5 L (12.0-15.0) g/dL Hct 28.4 L (40.0-54.0) % MCV 90 (80-98) fL MCH 30 (27-31) pg MCHC 34 (32-36) % Plt Count 147 L (150-400) K/uL Sodium 134 L (140-148) mmol/L Potassium 3.3 L (3.6-5.2) mmol/L Chloride 98 L (100-108) mmol/L Carbon Dioxide 29 (21-32) mmol/L Anion Gap 10.3 (5.0-14.0) mmol/L BUN 14 (7-18) mg/dL Creatinine 1.1 (0.8-1.3) mg/dL Est Cr Clr Drug Dosing 54.98 mL/min Estimated GFR (MDRD) > 60 (>60) Glucose 173 H (74-106) mg/dL Hemoglobin A1c 6.2 (4.5-6.2) % Calcium 8.0 L (8.5-10.1) mg/dL Med Orders - Current: Current Medications Albuterol (Proventil Neb Soln) 2.5 mg NEB Q6H PRN PRN Reason: Shortness of Breath Folic Acid (Folic Acid) 1 mg PO DAILY [facility] Last Admin: 08/09/18 08:00 Dose: 1 mg Heparin Sodium (Porcine) (Heparin Sodium) 5,000 units SUBCUT Q8H [facility] Last Admin: 08/09/18 06:07 Dose: 5,000 units Dextrose/Sodium Chloride (Dextrose 5%-1/2 Ns) 1,000 mls @ 100 mls/hr IV ASDIRECTED [facility] Last Admin: 08/09/18 10:13 Dose: 100 mls/hr Insulin Human Lispro (Humalog) 0 unit SUBCUT BIDMEALS [facility]; Protocol Last Admin: 08/09/18 07:56 Dose: 1 unit Ondansetron HCl (Zofran) 4 mg IV Q4H PRN PRN Reason: Nausea/Vomiting Pantoprazole Sodium (Protonix) 40 mg PO ACBREAKFAST [facility] Last Admin: 08/09/18 07:56 Dose: 40 mg Potassium Chloride (Klor-Con M20) 40 meq PO BID [facility] Stop: 08/09/18 21:01 Thiamine HCl (Vitamin B-1) 100 mg PO DAILY [facility] Last Admin: 08/09/18 08:00 Dose: 100 mg Discontinued Medications Lactated Ringer's (Ringers, Lactated) 1,000 mls @ 1,000 mls/hr IV BOLUS ONE Stop: 08/07/18 21:26 Last Admin: 08/07/18 20:43 Dose: Not Given Magnesium Sulfate 2 gm/ Premix 50 mls @ 12.5 mls/hr IV ONETIME ONE Stop: 08/08/18 00:26 Last Admin: 08/07/18 20:43 Dose: Not Given Multivitamins/Minerals 10 ml/Thiamine HCl 100 mg/ Folic Acid 1 mg/ Magnesium Sulfate 3 gm/ Sodium Chloride 1,017.2 mls @ 500 mls/hr IV ASDIRECTED [facility] Last Admin: 08/07/18 20:41 Dose: 500 mls/hr Dextrose/Sodium Chloride (Dextrose 5%-1/2 Ns) 1,000 mls @ 150 mls/hr IV ASDIRECTED [facility] Last Admin: 08/08/18 06:29 Dose: 150 mls/hr Magnesium Oxide (Magnesium Oxide) 800 mg PO ONETIME ONE Stop: 08/07/18 20:28 Last Admin: 08/07/18 20:43 Dose: 800 mg Pantoprazole Sodium (Protonix Iv) 40 mg IV BEDTIME [facility] Last Admin: 08/07/18 23:39 Dose: 40 mg - Exam Quality Assessment: No: Supplemental Oxygen General: Alert, Oriented, Cooperative, No Acute Distress Lungs: Normal Respiratory Effort, Decreased Breath Sounds (right lung base), Crackles (right lung base). No: Wheezing Cardiovascular: Regular Rate, Regular Rhythm GI/Abdominal Exam: Soft, No Distention Extremities: No Pedal Edema. No: Increased Warmth Skin: Warm, Dry Psy/Mental Status: Alert, Normal Affect - Problem List & Annotations (1) Weakness SNOMED Code(s): 90355824 Code(s): R53.1 - WEAKNESS Status: Acute Current Visit: Yes (2) Alcohol dependence syndrome SNOMED Code(s): 20484965 Code(s): F10.20 - ALCOHOL DEPENDENCE, UNCOMPLICATED Status: Chronic Current Visit: Yes Qualifiers: Substance use status: uncomplicated Qualified Code(s): F10.20 - Alcohol dependence, uncomplicated (3) Diabetes mellitus type 2 SNOMED Code(s): 74813671 Code(s): E11.9 - TYPE 2 DIABETES MELLITUS WITHOUT COMPLICATIONS Status: Chronic Current Visit: No (4) Community acquired pneumonia SNOMED Code(s): 401306715 Code(s): J18.9 - PNEUMONIA, UNSPECIFIED ORGANISM Status: Acute Current Visit: Yes Qualifiers: Laterality: right Lung location: lower lobe of lung Qualified Code(s): J18.1 - Lobar pneumonia, unspecified organism - Problem List Review Problem List Initiated/Reviewed/Updated: Yes - My Orders Last 24 Hours: My Active Orders 08/08/18 10:55 Up With Assistance [RC] ASDIRECTED 08/08/18 11:00 Dextrose 5%-0.45% NaCl [Dextrose 5%-1/2 NS] 1,000 ml IV ASDIRECTED 08/09/18 07:30 Pantoprazole [ProTONIX] 40 mg PO ACBREAKFAST 08/09/18 09:00 Folic Acid 1 mg PO DAILY Thiamine [Vitamin B-1] 100 mg PO DAILY 08/09/18 10:00 Potassium Chloride [Klor-Con M20] 40 meq PO BID 08/09/18 10:25 Benzonatate [Tessalon Perles] 100 mg PO TID PRN 08/09/18 10:26 CXR [Chest 1V Frontal] [CR] Routine 08/09/18 17:00 GLUCOSE POC LAB TO COLLECT [POC] BIDAC 08/10/18 05:00 BASIC METABOLIC PANEL,BMP [CHEM] Timed CBC W/O DIFF,HEMOGRAM [HEME] Timed (1) - Plan Plan:: ASSESSMENT AND PLAN - Generalized weakness - multifactorial with contribution from acute on chronic dehydration as well as deconditioning the setting of chronic alcohol use. Possible contribution from pneumonia as discussed below. -Continue Gentle hydration -Physical therapy and occupational therapy -Anticipate discharge to longterm for subacute rehabilitation Right lower lobe pneumonia - progressive cough and increasing weakness. This infection was present on admission and has progressed during the hospital stay and was not identified until his cough was more impressive today. He is not hypoxic at this time. White blood cell count is normal. -Levofloxacin -Blood cultures if fever -Supplement oxygen if needed Hypokalemia - mild hypokalemia noted this morning. -40 mEq of potassium chloride twice today and recheck in the morning Alcohol dependence - no evidence for withdrawal. Patient has a long-standing history of daily alcohol use. -Monitor for evidence of alcohol withdrawal -Supplement thiamine and folate Type 2 diabetes mellitus - patient has not been taking medications for some time. Blood sugars mildly elevated. -Monitor blood sugars, discuss restarting metformin if necessary and patient is interested Stage III chronic kidney disease - creatinine is near baseline and stable. Maintenance issues - - DVT prophylaxis - mechanical - GI prophylaxis - PPI - Nutrition - regular Disposition - I would anticipate discharge to the longterm for subacute rehabilitation after the hospital stay Dimitry Cotton M.D.
[2018-08-09] MEDS: Potassium Chloride 20 MEQ Tab.ER PO SCH ×2 (10:40→20:17)
[2018-08-09] MEDS ORDERED: Levofloxacin 250 MG Tab PO SCH (12:00)
[2018-08-09] MEDS ORDERED: Levofloxacin 500 MG Tab PO SCH (12:00)
[2018-08-09] MEDS: levoFLOXacin 500 MG, levoFLOXacin 250 MG PO SCH ×2 (13:48)
--- NOTE | 2018-08-09 17:09 | CRLCR ---
Indication: Cough. Technique: A single AP portable view of the chest was obtained. Comparison: None Findings: Postoperative changes of the right hilum are identified. Small bilateral pleural effusions are identified. The heart is normal in size. No pneumothorax is seen. Degenerative changes of both shoulders are identified. Impression: Small bilateral pleural effusions. Postoperative changes in the right hilar region. No pneumothorax. Dictated by Veronica Greene MD @ Aug 09 2018 5:07PM Signed by Dr. Veronica Greene @ Aug 09 2018 5:08PM
[2018-08-10] MEDS: Dextrose 5%-0.45% NaCl 1,000 ML IV SCH (05:44)
[2018-08-10] MEDS: Heparin Sodium 5,000 Units/ML Vial SUBCUT SCH ×3 (05:45→22:27)
[2018-08-10] MEDS: Pantoprazole 40 MG Tab.CR PO SCH (08:24)
[2018-08-10] MEDS: Thiamine 100 MG Tab PO SCH (08:24)
[2018-08-10] MEDS: Folic Acid 1 MG Tab PO SCH (08:24)
[2018-08-10] MEDS: Insulin Lispro 100 Unit/ML 3 ML KwikPen SUBCUT SCH ×2 (08:25→17:32)
--- NOTE | 2018-08-10 11:02 | PCM.PN ---
- General Info Date of Service: 08/10/18 Subjective Update: there were no acute events overnight. Cough is a little better today. He did not have fevers. He has not required supplemental oxygen. Still very weak but was able to ambulate around the room with a walker today. Feels tired. Feels down because of his current situation and weakness. Functional Status: Reports: Pain Controlled, Tolerating Diet - Review of Systems General: Reports: Weakness Pulmonary: Reports: Cough - Patient Data Vitals - Most Recent: Last Vital Signs Temp 37.0 C 08/10/18 10:43 Pulse 100 08/10/18 10:43 Resp 16 08/10/18 10:43 BP 114/63 08/10/18 10:43 Pulse Ox 100 08/10/18 10:43 Weight - Most Recent: 72.575 kg I&O - Last 24 Hours: Intake & Output 08/09/18 08/10/18 08/10/18 22:59 06:59 14:59 Intake Total 240 2242 240 Output Total 800 600 400 Balance -560 1642 -160 Lab Results Last 24 Hours: Laboratory Results - last 24 hr 08/10/18 08/10/18 Range/Units 05:45 05:45 WBC 5.8 (4.5-11.0) K/uL RBC 3.15 L (4.30-5.90) M/uL Hgb 9.6 L (12.0-15.0) g/dL Hct 28.3 L (40.0-54.0) % MCV 90 (80-98) fL MCH 31 (27-31) pg MCHC 34 (32-36) % Plt Count 126 L (150-400) K/uL Sodium 135 L (140-148) mmol/L Potassium 3.8 (3.6-5.2) mmol/L Chloride 102 (100-108) mmol/L Carbon Dioxide 26 (21-32) mmol/L Anion Gap 10.8 (5.0-14.0) mmol/L BUN 11 (7-18) mg/dL Creatinine 1.0 (0.8-1.3) mg/dL Est Cr Clr Drug Dosing 60.48 mL/min Estimated GFR (MDRD) > 60 (>60) Glucose 152 H (74-106) mg/dL Calcium 8.1 L (8.5-10.1) mg/dL Med Orders - Current: Current Medications Albuterol (Proventil Neb Soln) 2.5 mg NEB Q6H PRN PRN Reason: Shortness of Breath Benzonatate (Tessalon Perles) 100 mg PO TID PRN PRN Reason: Cough Folic Acid (Folic Acid) 1 mg PO DAILY [facility] Last Admin: 08/10/18 08:24 Dose: 1 mg Heparin Sodium (Porcine) (Heparin Sodium) 5,000 units SUBCUT Q8H [facility] Last Admin: 08/10/18 05:45 Dose: 5,000 units Dextrose/Sodium Chloride (Dextrose 5%-1/2 Ns) 1,000 mls @ 100 mls/hr IV ASDIRECTED [facility] Last Admin: 08/10/18 05:44 Dose: 100 mls/hr Insulin Human Lispro (Humalog) 0 unit SUBCUT BIDMEALS [facility]; Protocol Last Admin: 08/10/18 08:25 Dose: 1 unit Levofloxacin 500 mg/ (Levofloxacin 250 mg) 750 mg PO Q24H [facility] Last Admin: 08/09/18 13:48 Dose: 750 mg Ondansetron HCl (Zofran) 4 mg IV Q4H PRN PRN Reason: Nausea/Vomiting Pantoprazole Sodium (Protonix) 40 mg PO ACBREAKFAST [facility] Last Admin: 08/10/18 08:24 Dose: 40 mg Thiamine HCl (Vitamin B-1) 100 mg PO DAILY [facility] Last Admin: 08/10/18 08:24 Dose: 100 mg Discontinued Medications Lactated Ringer's (Ringers, Lactated) 1,000 mls @ 1,000 mls/hr IV BOLUS ONE Stop: 08/07/18 21:26 Last Admin: 08/07/18 20:43 Dose: Not Given Magnesium Sulfate 2 gm/ Premix 50 mls @ 12.5 mls/hr IV ONETIME ONE Stop: 08/08/18 00:26 Last Admin: 08/07/18 20:43 Dose: Not Given Multivitamins/Minerals 10 ml/Thiamine HCl 100 mg/ Folic Acid 1 mg/ Magnesium Sulfate 3 gm/ Sodium Chloride 1,017.2 mls @ 500 mls/hr IV ASDIRECTED [facility] Last Admin: 08/07/18 20:41 Dose: 500 mls/hr Dextrose/Sodium Chloride (Dextrose 5%-1/2 Ns) 1,000 mls @ 150 mls/hr IV ASDIRECTED [facility] Last Admin: 08/08/18 06:29 Dose: 150 mls/hr Magnesium Oxide (Magnesium Oxide) 800 mg PO ONETIME ONE Stop: 08/07/18 20:28 Last Admin: 08/07/18 20:43 Dose: 800 mg Pantoprazole Sodium (Protonix Iv) 40 mg IV BEDTIME [facility] Last Admin: 08/07/18 23:39 Dose: 40 mg Potassium Chloride (Klor-Con M20) 40 meq PO BID [facility] Stop: 08/09/18 21:01 Last Admin: 08/09/18 20:17 Dose: 40 meq - Exam Quality Assessment: No: Supplemental Oxygen General: Alert, Oriented, Cooperative, No Acute Distress Lungs: Clear to Auscultation, Normal Respiratory Effort Cardiovascular: Regular Rate, Regular Rhythm GI/Abdominal Exam: Soft, No Distention Extremities: No Pedal Edema Skin: Warm, Dry Psy/Mental Status: Alert, Normal Affect - Problem List & Annotations (1) Weakness SNOMED Code(s): 30054309 Code(s): R53.1 - WEAKNESS Status: Acute Current Visit: Yes (2) Alcohol dependence syndrome SNOMED Code(s): 87558663 Code(s): F10.20 - ALCOHOL DEPENDENCE, UNCOMPLICATED Status: Chronic Current Visit: Yes Qualifiers: Substance use status: uncomplicated Qualified Code(s): F10.20 - Alcohol dependence, uncomplicated (3) Diabetes mellitus type 2 SNOMED Code(s): 85630131 Code(s): E11.9 - TYPE 2 DIABETES MELLITUS WITHOUT COMPLICATIONS Status: Chronic Current Visit: No (4) Community acquired pneumonia SNOMED Code(s): 384078622 Code(s): J18.9 - PNEUMONIA, UNSPECIFIED ORGANISM Status: Acute Current Visit: Yes Qualifiers: Laterality: right Lung location: lower lobe of lung Qualified Code(s): J18.1 - Lobar pneumonia, unspecified organism - Problem List Review Problem List Initiated/Reviewed/Updated: Yes - My Orders Last 24 Hours: My Active Orders 08/09/18 10:25 Benzonatate [Tessalon Perles] 100 mg PO TID PRN 08/09/18 13:00 Levofloxacin [Levaquin] 750 mg PO Q24H 08/10/18 11:01 Convert IV to Saline Lock [OM.PC] Routine 08/10/18 17:00 GLUCOSE POC LAB TO COLLECT [POC] BIDAC - Plan Plan:: ASSESSMENT AND PLAN - Generalized weakness - multifactorial with contribution from acute on chronic dehydration as well as deconditioning the setting of chronic alcohol use. Possible contribution from pneumonia as discussed below. a little better but still very weak and requires a fair amount of assistance. -saline lock IV -Physical therapy and occupational therapy -Anticipate discharge to [facility] for subacute rehabilitation Right lower lobe pneumonia - progressive cough and increasing weakness. This infection was present on admission and has progressed during the hospital stay and was not identified until his cough was more impressive today. clinically little better. No fevers. Vitals stable. -Levofloxacin -Blood cultures if fever -Supplement oxygen if needed Hypokalemia - level normal today. -recheck in the morning Alcohol dependence - no evidence for withdrawal. Patient has a long-standing history of daily alcohol use. -Monitor for evidence of alcohol withdrawal -Supplement thiamine and folate Type 2 diabetes mellitus - patient has not been taking medications for some time. Blood sugars mildly elevated. -Monitor blood sugars, discuss restarting metformin if necessary and patient is interested Stage III chronic kidney disease - creatinine is near baseline and stable. Maintenance issues - - DVT prophylaxis - mechanical - GI prophylaxis - PPI - Nutrition - regular Disposition - I would anticipate discharge to the [facility] for subacute rehabilitation after the hospital stay Dimitry Cotton M.D.
[2018-08-10] MEDS ORDERED: Sodium Chloride 5% Ophth Soln 15 ML Bottle EYEBOTH PRN (13:12)
[2018-08-10] MEDS: levoFLOXacin 500 MG, levoFLOXacin 250 MG PO SCH ×2 (13:41)
[2018-08-10] MEDS ORDERED: Magnesium Hydroxide 400 MG/5 ML Susp 30 ML Cup PO PRN (14:35)
[2018-08-11] MEDS: Heparin Sodium 5,000 Units/ML Vial SUBCUT SCH (06:04)
[2018-08-11] MEDS: Pantoprazole 40 MG Tab.CR PO SCH (08:42)
[2018-08-11] MEDS: Thiamine 100 MG Tab PO SCH (08:42)
[2018-08-11] MEDS: Insulin Lispro 100 Unit/ML 3 ML KwikPen SUBCUT SCH (08:42)
[2018-08-11] MEDS: Folic Acid 1 MG Tab PO SCH (08:43)
--- NOTE | 2018-08-11 10:35 | PCM.DCSUM1 ---
Discharge Summary - Hospital Course Brief History: 78-year-old male with history of type 2 diabetes mellitus not currently taking his medications, alcohol dependence who presented with generalized weakness. He was admitted for management of weakness and deconditioning as well as significant dehydration. Diagnosis: Stroke: No - Discharge Data Discharge Date: 08/11/18 Discharge Disposition: DC/Tfer to SNF 03 Condition: Fair - Discharge Diagnosis/Problem(s) (1) Community acquired pneumonia SNOMED Code(s): 926114283 ICD Code: J18.9 - PNEUMONIA, UNSPECIFIED ORGANISM Status: Acute Current Visit: Yes Qualifiers: Laterality: right Lung location: lower lobe of lung Qualified Code(s): J18.1 - Lobar pneumonia, unspecified organism (2) Weakness SNOMED Code(s): 16847735 ICD Code: R53.1 - WEAKNESS Status: Acute Current Visit: Yes (3) Alcohol dependence syndrome SNOMED Code(s): 34304690 ICD Code: F10.20 - ALCOHOL DEPENDENCE, UNCOMPLICATED Status: Chronic Current Visit: Yes Qualifiers: Substance use status: uncomplicated Qualified Code(s): F10.20 - Alcohol dependence, uncomplicated (4) Diabetes mellitus type 2 SNOMED Code(s): 60553099 ICD Code: E11.9 - TYPE 2 DIABETES MELLITUS WITHOUT COMPLICATIONS Status: Chronic Current Visit: No - Patient Summary/Data Consults: Consultations 08/07/18 22:08 Consult to Case Management/Director Of Category Management [CONS] Routine Comment: Physician Instructions: Service(s) to be Consulted: Director Of Category Management OT Evaluation and Treatment [CONS] Routine Please Evaluate and Treat. OT Reason for Consult: Strengthening This query below is only for informational purposes and is not editable. PT Evaluation and Treatment [CONS] Routine Please Evaluate and Treat. PT Reason for Consult: Strengthening This query below is only for informational purposes and is not editable. Hospital Course: Joe presented to the emergency room by ambulance with generalized weakness and dehydration. He was so weak that he was unable to get off his couch. Workup in the emergency room revealed dehydration but no other acute findings. He was extremely weak and not safe for outpatient management so he was admitted to the hospital for further intervention. The day after admission was fairly uneventful. He did not have any fevers. He was improving slightly with the hydration but remained very weak. On the second day of hospitalization his cough worsened significantly. A chest x-ray was obtained and did show a right lower lobe pneumonia. I suspect this was present on admission since he did have a cough but was not impressive at the time of admission. He was started on levofloxacin. He received additional IV fluids throughout the first 3 days of the hospital stay. He has made slow improvement in his strength but remains very weak and requires the assist of 2 people. I suspect his weakness is the result of both chronic deconditioning as well as acute worsening with his pneumonia. He does have a history of chronic alcohol use but has not had any evidence for alcohol withdrawal. He has not had any fevers. His vital signs have all been stable. Blood sugars have been mildly elevated. I believe he would benefit from subacute rehabilitation. The plan is for him to discharge to [facility] for physical and occupational therapy. - Patient Instructions Diet: Regular Diet as Tolerated Activity: As Tolerated Showering/Bathing: May Shower Notify Provider of: Fever, Increased Pain, Nausea and/or Vomiting Other/Special Instructions: 1. You were in the hospital for management of generalized weakness that was related to both chronic deconditioning as well as a right lower lobe pneumonia. Your strength has been slowly improving but I recommend subacute rehabilitation to further improve your strength and safety at home. For the pneumonia, you should take levofloxacin 750 mg tablets once daily at around 1 PM for 4 more doses after hospital discharge. 2. Referral to PT and OT - strengthening of the setting of acute illness worsening chronic deconditioning. 3. Code status - DNR/DNI. 4. Seek medical attention if fever greater than 101, severe shortness of breath or if you develop chest pain. - Discharge Plan *PRESCRIPTION DRUG MONITORING PROGRAM REVIEWED*: No *COPY OF PRESCRIPTION DRUG MONITORING REPORT IN PATIENT CASA: No Prescriptions/Med Rec: Acetaminophen 650 mg PO Q4H PRN #200 capsule PRN Reason: Pain/Fever Benzonatate 100 mg PO TID PRN #30 capsule PRN Reason: Cough Levofloxacin 750 mg PO Q24H #4 tablet Home Medications: Home Meds metFORMIN [Glucophage XR] 500 mg PO BID 03/03/18 [History] Acetaminophen 650 mg PO Q4H PRN #200 capsule 08/11/18 [Rx] Benzonatate 100 mg PO TID PRN #30 capsule 08/11/18 [Rx] Levofloxacin 750 mg PO Q24H #4 tablet 08/11/18 [Rx] Oxygen Therapy Mode: Room Air Patient Handouts: Community-Acquired Pneumonia, Adult, [id number], Levofloxacin tablets Referrals: Kyle Roberts RELATIONS DIRECTOR [Nurse Practitioner] - (1-2 weeks - f/u hospital stay for pneumonia, weakness) - Discharge Summary/Plan Comment DC Time >30 min.: Yes (50 - new senior living discharge) - Patient Data Vitals - Most Recent: Last Vital Signs Temp 36.6 C 08/11/18 07:19 Pulse 90 08/11/18 07:19 Resp 16 08/11/18 07:19 BP 142/65 H 08/11/18 07:19 Pulse Ox 95 08/11/18 07:19 Weight - Most Recent: 72.575 kg I&O - Last 24 hours: Intake & Output 08/10/18 08/11/18 08/11/18 22:59 06:59 14:59 Output Total 550 150 Balance -550 -150 Med Orders - Current: Current Medications Albuterol (Proventil Neb Soln) 2.5 mg NEB Q6H PRN PRN Reason: Shortness of Breath Benzonatate (Tessalon Perles) 100 mg PO TID PRN PRN Reason: Cough Folic Acid (Folic Acid) 1 mg PO DAILY [facility] Last Admin: 08/11/18 08:43 Dose: 1 mg Heparin Sodium (Porcine) (Heparin Sodium) 5,000 units SUBCUT Q8H [facility] Last Admin: 08/11/18 06:04 Dose: 5,000 units Insulin Human Lispro (Humalog) 0 unit SUBCUT BIDMEALS [facility]; Protocol Last Admin: 08/11/18 08:42 Dose: Not Given Levofloxacin 500 mg/ (Levofloxacin 250 mg) 750 mg PO Q24H [facility] Last Admin: 08/10/18 13:41 Dose: 750 mg Magnesium Hydroxide (Milk Of Magnesia) 30 ml PO BID PRN PRN Reason: Constipation Ondansetron HCl (Zofran) 4 mg IV Q4H PRN PRN Reason: Nausea/Vomiting Pantoprazole Sodium (Protonix) 40 mg PO ACBREAKFAST [facility] Last Admin: 08/11/18 08:42 Dose: 40 mg Senna/Docusate Sodium (Senna Plus) 1 tab PO BID PRN PRN Reason: Constipation Last Admin: 08/10/18 17:36 Dose: 1 tab Sodium Chloride (Carlos A 128 5% Ophth Soln) 0 ml EYEBOTH QID PRN PRN Reason: DRY EYES Last Admin: 08/10/18 13:41 Dose: 1 drop Thiamine HCl (Vitamin B-1) 100 mg PO DAILY [facility] Last Admin: 08/11/18 08:42 Dose: 100 mg Discontinued Medications Lactated Ringer's (Ringers, Lactated) 1,000 mls @ 1,000 mls/hr IV BOLUS ONE Stop: 08/07/18 21:26 Last Admin: 08/07/18 20:43 Dose: Not Given Magnesium Sulfate 2 gm/ Premix 50 mls @ 12.5 mls/hr IV ONETIME ONE Stop: 08/08/18 00:26 Last Admin: 08/07/18 20:43 Dose: Not Given Multivitamins/Minerals 10 ml/Thiamine HCl 100 mg/ Folic Acid 1 mg/ Magnesium Sulfate 3 gm/ Sodium Chloride 1,017.2 mls @ 500 mls/hr IV ASDIRECTED [facility] Last Admin: 08/07/18 20:41 Dose: 500 mls/hr Dextrose/Sodium Chloride (Dextrose 5%-1/2 Ns) 1,000 mls @ 150 mls/hr IV ASDIRECTED [facility] Last Admin: 08/08/18 06:29 Dose: 150 mls/hr Dextrose/Sodium Chloride (Dextrose 5%-1/2 Ns) 1,000 mls @ 100 mls/hr IV ASDIRECTED [facility] Last Admin: 08/10/18 05:44 Dose: 100 mls/hr Magnesium Oxide (Magnesium Oxide) 800 mg PO ONETIME ONE Stop: 08/07/18 20:28 Last Admin: 08/07/18 20:43 Dose: 800 mg Pantoprazole Sodium (Protonix Iv) 40 mg IV BEDTIME [facility] Last Admin: 08/07/18 23:39 Dose: 40 mg Potassium Chloride (Klor-Con M20) 40 meq PO BID [facility] Stop: 08/09/18 21:01 Last Admin: 08/09/18 20:17 Dose: 40 meq - Exam Quality Assessment: Denies: Supplemental Oxygen General: Reports: Alert, Oriented, Cooperative, No Acute Distress Lungs: Reports: Normal Respiratory Effort, Crackles (rare right lung base) Cardiovascular: Reports: Regular Rate, Regular Rhythm GI/Abdominal Exam: Soft, No Distention Extremities: No Pedal Edema Psy/Mental Status: Reports: Alert, Normal Affect
[2018-08-11 11:20] VITALS: BP 129/63
[2018-08-11] MEDS: levoFLOXacin 500 MG, levoFLOXacin 250 MG PO SCH ×2 (12:03)
== END 2018-08-11 15:02 | DRG 193 ==
LOC: JP.ED 19:54 → JP.MS 22:08
PROVIDERS: ADMIT Family Medicine; ATTEND Internal Medicine
DX: R53.1 Weakness (principal); E44.0 Moderate protein-calorie malnutrition; J18.1 Lobar pneumonia, unspecified organism; E43 Unspecified severe protein-calorie malnutrition; I10 Essential (primary) hypertension; M54.9 Dorsalgia, unspecified; Z68.1 Body mass index [BMI] 19.9 or less, adult; F10.10 Alcohol abuse, uncomplicated; E11.9 Type 2 diabetes mellitus without complications; E83.42 Hypomagnesemia; E78.00 Pure hypercholesterolemia, unspecified; G89.29 Other chronic pain; I73.9 Peripheral vascular disease, unspecified; R47.81 Slurred speech; R53.81 Other malaise; E11.22 Type 2 diabetes mellitus with diabetic chronic kidney disease; I12.9 Hypertensive chronic kidney disease with stage 1 through stage 4 chronic kidney disease, or unspecified chronic kidney disease; N18.3 Chronic kidney disease, stage 3 (moderate); E78.5 Hyperlipidemia, unspecified; K21.9 Gastro-esophageal reflux disease without esophagitis; J44.9 Chronic obstructive pulmonary disease, unspecified; I48.91 Unspecified atrial fibrillation; F17.210 Nicotine dependence, cigarettes, uncomplicated; F10.20 Alcohol dependence, uncomplicated; M54.5 Low back pain; E86.0 Dehydration; E87.6 Hypokalemia; Z66 Do not resuscitate; Z79.84 Long term (current) use of oral hypoglycemic drugs; Z86.010 Personal history of colon polyps; Z79.899 Other long term (current) drug therapy; Z60.4 Social exclusion and rejection
CPT/HCPCS: 36415; 80053; 82140; 82248; 82607; 83036; 83735; 84443; 85027; 85610; 96365; 99285 ×2; A9270; G0480; J3411; J3475; J7030; 71045; 80048; 82962; 84100; 97162-GP; 97165-GO; 97530-GP; C9113; J1644; J1815; J3490

== ENCOUNTER 2024-05-28 12:34 | Emergency (ER) | payer MEDICARE, OTHER ==
[2024-05-28] MEDS ORDERED: Sodium Chloride 0.9% 10 ML Syringe FLUSH PRN (12:54)
[2024-05-28 12:57] LABS: APPEARANCE,URINE TURBID (CLEAR); COLOR,URINE BROWN (YELLOW)
[2024-05-28 12:58] VITALS: BP 138/81; PULSE 78
[2024-05-28 12:58] LABS: BILIRUBIN,URINE SMALL (NEGATIVE); GLUCOSE,URINE NEGATIVE (NEGATIVE); KETONES,URINE NEGATIVE (NEGATIVE); OCCULT BLOOD,URINE LARGE (NEGATIVE); PROTEIN,URINE >=300 mg/dL (NEGATIVE)
[2024-05-28] MEDS ORDERED: Sodium Chloride 0.9% 1,000 ML IV ONE (12:58)
[2024-05-28 12:59] LABS: LEUKOCYTE ESTERASE,URINE LARGE (NEGATIVE); NITRITE,URINE POSITIVE (NEGATIVE); RBC,URINE >100 (0-5); UROBILINOGEN,URINE 0.2 EU/dL (0.2-1.0); WBC,URINE >100 (0-5)
[2024-05-28 13:00] LABS: AMORPHOUS SEDIMENT,URINE NOT SEEN; BACTERIA,URINE MANY; EPITHELIAL CELLS,URINE FEW; MUCUS,URINE MANY
[2024-05-28 13:13] LABS: BASOPHILS ABSOLUTE AUTO 0.06 K/uL (0.00-0.10); BASOPHILS PERCENT AUTO 0.6 % (0.1-1.3); EOSINOPHILS ABSOLUTE AUTO 0.26 K/uL (0.00-0.40); EOSINOPHILS PERCENT AUTO 2.8 % (0.0-5.4); HEMATOCRIT 42.8 % (38.4-49.7); HEMOGLOBIN 14.6 g/dL (12.9-16.9); IMMATURE GRAN ABSOLUTE AUTO 0.08 K/uL (0.00-0.23); IMMATURE GRAN PERCENT AUTO 0.9 % (0.0-0.7); LYMPHOCYTES ABSOLUTE AUTO 1.95 K/uL (0.8-3.3); LYMPHOCYTES PERCENT AUTO 20.8 % (11.4-47.7); MEAN CORPUSCULAR HEMOGLOBIN 29.6 pg (31.6-35.5); MEAN CORPUSCULAR HGB CONC 34.1 g/dL (31.6-35.5); MEAN CORPUSCULAR VOLUME 86.8 fL (81.4-99.0); MONOCYTES PERCENT AUTO 8.5 % (3.3-12.6); NEUTROPHILS ABSOLUTE AUTO 6.21 K/uL (1.0-7.6); NEUTROPHILS PERCENT AUTO 66.4 % (40.0-78.1); PLATELET COUNT,PLT 203 K/uL (130-375); RED BLOOD CELL COUNT 4.93 M/uL (4.14-5.76); WHITE BLOOD CELL COUNT,WBC 9.4 K/uL (3.2-11.0)
[2024-05-28 13:30] LABS: A/G RATIO 0.6 (1.2-2.2); ALANINE AMINOTRANSFERASE,ALT 11 U/L (12-78); ALBUMIN 2.9 g/dL (3.4-5.0); ALKALINE PHOSPHATASE 105 U/L (46-116); ASPARTATE AMNIOTRANSFERASE,AST 37 U/L (15-37); BILIRUBIN TOTAL 1.2 mg/dL (0.2-1.0); BLOOD UREA NITROGEN,BUN 26 mg/dL (7-18); CALCIUM 8.9 mg/dL (8.5-10.1); CARBON DIOXIDE,CO2 30 mmol/L (21-32); CHLORIDE,CL 97 mmol/L (100-108); CREATININE 1.4 mg/dL (0.8-1.3); EST CRCL DRUG DOSING (CG) 30.94 mL/min; ESTIMATED GFR 49 mL/min (>60); GLUCOSE RANDOM 155 mg/dL (74-106); PROTEIN TOTAL,TP 7.5 g/dL (6.4-8.2); SODIUM,NA 135 mmol/L (140-148)
[2024-05-28 14:39] LABS: LACTIC ACID 1.7 mmol/L (0.4-2.0)
== END 2024-05-28 14:25 ==
LOC: JP.ED 12:34
DX: N39.0 Urinary tract infection, site not specified (principal); I10 Essential (primary) hypertension; E78.00 Pure hypercholesterolemia, unspecified; E11.9 Type 2 diabetes mellitus without complications; Z79.899 Other long term (current) drug therapy
CPT/HCPCS: 36415; 80053; 81001; 83605; 84145; 85025; 87040; 87086; 87088; 87186; 99284